=== PATIENT | female | born 1950 | race Hispanic/Latino ===

== ENCOUNTER → 2019-01-17 | Day surgery (SDC) | payer MEDICARE ==
[2019-01-15 14:09] LABS: BASOPHILS % 0.4 % (0.0-1.0); EOSINOPHILS # (AUTO) 0.2 (0.0-0.4); EOSINOPHILS % 2.9 % (0.0-6.0); HEMATOCRIT 39.4 % (34.2-44.1); HEMOGLOBIN 13.7 g/dL (12.0-16.0); LYMPHOCYTES % 28.3 % (18.0-39.1); MEAN CORPUSCULAR HEMOGLOBIN 31.4 pg (28-32); MEAN CORPUSCULAR HGB CONC 34.8 g/dL (31-35); MEAN CORPUSCULAR VOLUME 90.2 fL (81-99); MONOCYTES # (AUTO) 0.6 (0.2-0.8); MONOCYTES % 8.7 % (4.4-11.3); NEUTROPHILS # (AUTO) 4.2 (2.1-6.9); NEUTROPHILS % 59.4 % (38.7-80.0); PLATELET COUNT 242 x10e3/uL (140-360); RED BLOOD COUNT 4.37 x10e6/uL (3.6-5.1); RED CELL DISTRIBUTION WIDTH 12.3 % (11.7-14.4)
[2019-01-15 14:26] LABS: INR 0.85; PROTHROMBIN TIME 12.1 seconds (11.9-14.5)
[2019-01-15 14:27] LABS: PARTIAL THROMBOPLASTIN TIME 29.7 seconds (23.8-35.5)
--- NOTE | 2019-01-15 15:21 | Diagnostic Imaging Report ---
EXAMINATION: CHEST 2 VIEWS INDICATION: Pre-operative COMPARISON: Chest radiograph of 03/10/2009 FINDINGS: LINES/TUBES:None LUNGS:The lungs are well-inflated. No focal consolidation or pulmonary edema. PLEURA:No pleural effusion or pneumothorax. MEDIASTINUM:The cardiomediastinal silhouette appears normal in size and shape. BONES/SOFT TISSUES:No acute osseous injury. Mild degenerative changes of the visualized spine. Cervical fusion hardware partially visualized. ABDOMEN:No free air under the diaphragm. IMPRESSION: No focal pneumonia or pulmonary edema. Signed by: Yvonne Payne MD on 01/15/2019 3:18 PM
[~2019-01-17] MED LIST: BUPIVACAINE HCL 0.5% INJ 30 ML VIAL INJ ONE; CALCIUM PO; CEFAZOLIN SOD 1 GM/NS 50ML 100 ML IV ONE; CITALOPRAM HBR20 MG PO; DAILY VITAMIN1 EAC3 PO; DEXAMETHASONE SOD PHOS INJ 4 MG/ML VIAL ONE; FENTANYL CITRATE/PF 100MCG/2 ML INJ ONE; KETOROLAC TROMETHAMINE 30 MG/ML VIAL ONE; LIDOCAINE HCL 2% LOCAL INJ 5 ML SDV VIAL INJ ONE; LOSARTAN POTASS25 MG PO; LOVASTATIN10 MG PO; MULTIVITAMINS1 EAC7 PO; ONDANSETRON HCL INJ 2MG/ML 2ML 2 MG/ML VIAL ONE; PROPOFOL IV EMULSION 10 MG/ML 20 ML VIAL ONE; SEVOFLURANE INHAL SOLN 250 ML PEN BTL ONE; VITAMIN B; VITAMIN D1000 UNI1 PO; VITAMIN D400 UNIT PO; Z.0.ZOLOFT50 MG PO; Z.2.CALCIUM 600 +1 E
--- OUTSIDE RECORDS SUMMARY | 2019-01-17 06:37 | XMS REPORT | Summary of Care ---
Author Organization Unknown Address Unknown Phone Unavailable Encounter HQ [email or web address](JUDY) [id number] Date(s): 02/04/14 - 02/04/14 [facility] Outpatient Imaging - [address] [address]- [place] Discharge Disposition: Home Physician Attending: Suleiman Hassan MD Reason for Visit 592.0 - CALCULUS OF KID 593.2 - "CYST OF KIDNEY," Problem List No data available for this section Allergies, Adverse Reactions, Alerts Substance Reaction Severity Status NKDA Active Medications No data available for this section Medications Administered During Your Visit No data available for this section Immunizations No data available for this section
--- OUTSIDE RECORDS SUMMARY | 2019-01-17 06:37 | XMS REPORT | Summary of Care ---
Author Organization Unknown Address Unknown Phone Unavailable Encounter HQ [email or web address]([facility]) [id number] Date(s): 12/19/13 - 12/19/13 [facility] Outpatient Imaging - [address] [address]- [place] Discharge Disposition: Home Physician Attending: Branden Maldonado MD Reason for Visit 719.47 - JOINT PAIN-ANKL Problem List No data available for this section Allergies, Adverse Reactions, Alerts Substance Reaction Severity Status NKDA Active Medications No data available for this section Medications Administered During Your Visit No data available for this section Immunizations No data available for this section
--- OUTSIDE RECORDS SUMMARY | 2019-01-17 06:37 | XMS REPORT | Summary of Care ---
Author Author [facility] Outpatient Imaging - [place] Organization [facility] Outpatient Imaging - [place] Address Unknown Phone Unavailable Encounter HQ Benoit(FIN) [id number] Date(s): 07/28/17 - 07/28/17 [facility] Outpatient Imaging - [place] [address] [place] [address]- [phone] Encounter Diagnosis Calculus of kidney (Final) - 08/01/17 Cyst of kidney, acquired (Final) - Discharge Disposition: Home or Self Care Attending Physician: Suleiman Hassan MD Vital Signs No data available for this section Problem List Condition Effective Dates Status Health Status Informant Acid Active reflux(Confirmed) Anxiety(Confirmed) Resolved HTN - Resolved Hypertension(Confirm ed) Kidney Active stone(Confirmed) Sleep Active apnea(Confirmed) Allergies, Adverse Reactions, Alerts Substance Reaction Severity Status NKDA Active Medications No data available for this section Results No data available for this section Immunizations No data available for this section Procedures Procedure Date Related Diagnosis Body Site Status Cervical discectomy Completed Cholecystectomy Completed Eddi-Thelma operation for hiatal hernia Completed repair with esophagogastroplasty Hernia repair Completed Partial hysterectomy Completed Social History Social History Type Response Employment/School Status: Retired. Alcohol Never Smoking Status Former smoker; Exposure to Tobacco Smoke None; Cigarette Smoking Last 365 Days No; Reg Smoking Cessation Counseling No entered on: 04/24/17 Assessment and Plan No data available for this section
--- OUTSIDE RECORDS SUMMARY | 2019-01-17 06:37 | XMS REPORT | Summary of Care ---
Author Author [facility] Address Unknown Phone Unavailable Encounter HQ Benoit(JUDY) [id number] Date(s): 05/31/17 - 06/29/17 [facility] Encounter Diagnosis Encounter for other orthopedic aftercare (Final) - 07/04/17 Stiffness of right knee, not elsewhere classified (Final) - Pain in right knee (Final) - Muscle weakness (generalized) (Final) - Unsteadiness on feet (Final) - Unspecified abnormalities of gait and mobility (Final) - Presence of right artificial knee joint (Final) - Discharge Disposition: Home or Self Care Attending Physician: Magdi Torres MD Vital Signs No data available for [...]
--- OUTSIDE RECORDS SUMMARY | 2019-01-17 06:37 | XMS REPORT | Summary of Care ---
Author Author [facility] Address Unknown Phone Unavailable Encounter HQ Rosalinda_bartolome(FIN) [id number] Date(s): 04/26/17 - 05/25/17 [facility] Discharge Disposition: Home or Self Care Attending [...] Procedures Procedure Date Related Diagnosis Body Site Cervical discectomy Cholecystectomy Eddi-Thelma operation for hiatal hernia repair with esophagogastroplasty Hernia repair Partial hysterectomy Social History Social History Type Response Employment/School Status: Retired. Alcohol Never Smoking Status Former smoker; Exposure to Tobacco Smoke None; Cigarette Smoking Last 365 Days No; Reg Smoking Cessation Counseling No Assessment and Plan No data available for this section
--- OUTSIDE RECORDS SUMMARY | 2019-01-17 06:37 | XMS REPORT | Summary of Care ---
Author Organization Unknown Address Unknown Phone Unavailable Encounter HQ [email or web address]([facility]) [id number] Date(s): 01/27/14 - 01/27/14 [facility] Outpatient Imaging - [address] [address]- [place] Discharge Disposition: Home Physician Attending: Suleiman Hassan MD Reason for Visit 593.2 - "CYST OF KIDNEY," Problem List No data available for this section Allergies, Adverse Reactions, Alerts Substance Reaction Severity Status NKDA Active Medications No data available for this section Medications Administered During Your Visit No data available for this section Immunizations No data available for this section
--- OUTSIDE RECORDS SUMMARY | 2019-01-17 06:37 | XMS REPORT | Summary of Care ---
Author Author [facility] Organization [facility] Address Unknown Phone Unavailable Encounter HQ Benoit(FIN) [id number] Date(s): 07/19/18 - 07/20/18 [facility] [address] [place] [address]- [phone] Encounter Diagnosis Kidney stone on right side (Discharge Diagnosis) - 07/20/18 Discharge Disposition: Home or Self Care Attending Physician: Feli Hassan DO Vital Signs 1 2 3 Most recent to oldest [Reference Range]: 167.64 cm (07/19/18 11:06 PM) Height 97.7 DegF (07/20/18 4:25 AM) 98.0 DegF (07/19/18 11:06 PM) Temperature Oral [96.4-99.1 DegF] 117/71 mmHg (07/20/18 4:25 AM) 132/76 mmHg (07/20/18 3:36 AM) 124/71 mmHg (07/20/18 2:45 AM) Blood Pressure [90-140/60-90 mmHg] 18 BRMIN (07/20/18 4:25 AM) 23 BRMIN *HI* (07/20/18 3:36 AM) 20 BRMIN (07/20/18 2:45 AM) Respiratory Rate [14-20 BRMIN] 77 bpm (07/20/18 4:25 AM) 76 bpm (07/19/18 11:06 PM) Peripheral Pulse Rate [60-100 bpm] 77.273 kg (07/19/18 11:06 PM) Weight 27.5 m2 (07/19/18 11:06 PM) Body Mass Index Problem List Condition Effective Dates Status Health Status Informant Acid Active reflux(Confirmed) Anxiety(Confirmed) Resolved HTN - Resolved Hypertension(Confirm ed) Kidney Active stone(Confirmed) Sleep Active apnea(Confirmed) Allergies, Adverse Reactions, Alerts Substance Reaction Severity Status NKDA Active Medications Carafate 1 gm, 1 tab, Route: PO, Drug form: TAB, QID-Before Meals, Dosing Weight 77.273, kg, Start date: 07/20/18 7:30:00 FURNACE ROASTER, Duration: 30 day, Stop date: 08/18/18 21:0 0:00 FURNACE ROASTER Notes: May interfere w/enteral feeds - Take 1 hr before or 2 hr after antacids, dairy pdt, meals & minerals - On empty stomach.For patients unable to swallow tablet, dissolve in 10mL - 30mL of water or juice and stir before giving. (Same As: Carafate) Start Date: 07/20/18 Stop Date: 07/20/18 Status: Canceled Flomax 0.4 mg oral capsule 0.4 mg=1 cap, PO, Daily, # 30 cap, 0 Refill(s) Start Date: 07/20/18 Status: Ordered morphine Sulfate 4 mg, Route: IVP, ONCE, Dosing Weight 77.273, kg, Priority: STAT, Start date: 1:10:00 FURNACE ROASTER, Stop date: 07/20/18 1:10:00 FURNACE ROASTER Start Date: 07/20/18 Stop Date: 07/20/18 Status: Completed ondansetron 4 mg, Route: IVP, Drug form: INJ, ONCE, Dosing Weight 77.273, kg, Priority: STAT , Start date: 07/20/18 1:10:00 FURNACE ROASTER, Stop date: 07/20/18 1:10:00 FURNACE ROASTER Start Date: 07/20/18 Stop Date: 07/20/18 Status: Completed Sodium Chloride 0.9% (Bolus) IV 1,000 mL, Infuse Over: 1 hr, Route: IV, ONCE, Priority: STAT, Dosing Weight 77.2 73 kg, Start date: 07/20/18 1:10:00 FURNACE ROASTER, Stop date: 07/20/18 1:10:00 FURNACE ROASTER Start Date: 07/20/18 Stop Date: 07/20/18 Status: Completed Results ELECTROLYTES Most recent to 1 oldest [Reference Range]: Sodium Lvl [135-145 135 mEq/L mEq/L] (07/20/18 12:36 AM) Potassium Lvl 4.2 mEq/L [3.5-5.1 mEq/L] (07/20/18 12:36 AM) Chloride Lvl [95-109 105 mEq/L mEq/L] (07/20/18 12:36 AM) CO2 [24-32 mEq/L] 25 mEq/L (07/20/18 12:36 AM) AGAP [10.0-20.0 9.2 mEq/L mEq/L] *LOW* (07/20/18 12:36 AM) CHEM PANEL Most recent to 1 oldest [Reference Range]: Creatinine Lvl 0.78 mg/dL [0.50-1.40 mg/dL] (07/20/18 12:36 AM) eGFR 77 mL/min/1.73m2 1 *NA* (07/20/18 12:36 AM) BUN [7-22 mg/dL] 21 mg/dL (07/20/18 12:36 AM) B/C Ratio [6-25] 27 *HI* (07/20/18 12:36 AM) Glucose Lvl [70-99 115 mg/dL mg/dL] *HI* (07/20/18 12:36 AM) Total Protein 7.4 g/dL [6.4-8.4 g/dL] (07/20/18 12:36 AM) Albumin Lvl [3.5-5.0 3.5 g/dL g/dL] (07/20/18 12:36 AM) Globulin [2.7-4.2 3.9 g/dL g/dL] (07/20/18 12:36 AM) A/G Ratio [0.7-1.6] 0.9 (07/20/18 12:36 AM) Calcium Lvl 8.6 mg/dL [8.5-10.5 mg/dL] (07/20/18 12:36 AM) ALT [0-65 unit/L] 26 unit/L (07/20/18 12:36 AM) AST [0-37 unit/L] 24 unit/L (07/20/18 12:36 AM) Alk Phos [39-136 127 unit/L unit/L] (07/20/18 12:36 AM) Bili Total [0.2-1.3 0.3 mg/dL mg/dL] (07/20/18 12:36 AM) 1Result Comment: The eGFR is calculated using the CKD-EPI formula. In most young, healthy individuals the eGFR will be >90 mL/min/1.73m2. The eGFR declines with age. An eGFR of 60-89 may be normal in some populations, particularly the elderly, for whom the CKD-EPI formula has not been extensively validated. Use of the eGFR is not recommended in the following populations: Individuals with unstable creatinine concentrations, including patients and those with serious co-morbid conditions. Patients with extremes in muscle mass or diet. The data above are obtained from the National Kidney Disease Education Program ( NKDEP) which additionally recommends that when the eGFR is used in patients with extremes of body mass index for purposes of drug dosing, the eGFR should be mul tiplied by the estimated BMI. URINE AND STOOL Most recent to 1 oldest [Reference Range]: UA Turbidity [Clear] Clear (07/19/18 11:23 PM) UA Color Sheela *NA* (07/19/18 11:23 PM) UA pH [5.0-8.0] 5.0 (07/19/18 11:23 PM) UA Spec Grav 1.019 [<=1.030] (07/19/18 11:23 PM) UA Glucose Negative [Negative] *NA* (07/19/18 11:23 PM) UA Blood [Negative] Large *ABN* (07/19/18 11:23 PM) UA Ketones Negative [Negative] *NA* (07/19/18 11:23 PM) UA Protein [Negative 30 mg/dL mg/dL] *ABN* (07/19/18 11:23 PM) UA Urobilinogen 4.0 mg/dL [0.1-1.0 mg/dL] *HI* (07/19/18 11:23 PM) UA Bili [Negative] Negative *NA* (07/19/18 11:23 PM) UA Leuk Est Negative [Negative] (07/19/18 11:23 PM) UA Nitrite Positive [Negative] *ABN* (07/19/18 11:23 PM) UA WBC [0-5 /HPF] 6 /HPF *HI* (07/19/18 11:23 PM) UA RBC [0-2 /HPF] >182 /HPF *HI* (07/19/18 11:23 PM) UA Bacteria [None Occasional /HPF Seen /HPF] *NA* (07/19/18 11:23 PM) UA Sq Epi [Few /LPF] Occasional /LPF *NA* (07/19/18 11:23 PM) HEMATOLOGY Most recent to 1 oldest [Reference Range]: WBC [3.7-10.4 K/CMM] 10.0 K/CMM (07/20/18 12:36 AM) RBC [4.20-5.40 4.58 M/CMM M/CMM] (07/20/18 12:36 AM) Hgb [12.0-16.0 g/dL] 14.8 g/dL (07/20/18 12:36 AM) Hct [36.0-48.0 %] 43.4 % (07/20/18 12:36 AM) MCV [80.0-98.0 fL] 94.7 fL (07/20/18 12:36 AM) MCH [27.0-31.0 pg] 32.3 pg *HI* (07/20/18 12:36 AM) MCHC [32.0-36.0 34.1 g/dL g/dL] (07/20/18 12:36 AM) RDW [11.5-14.5 %] 13.8 % (07/20/18 12:36 AM) MPV [7.4-10.4 fL] 8.5 fL (07/20/18 12:36 AM) Platelet [133-450 242 K/CMM K/CMM] (07/20/18 12:36 AM) Segs [45.0-75.0 %] 73.4 % (07/20/18 12:36 AM) Lymphocytes 18.5 % [20.0-40.0 %] *LOW* (07/20/18 12:36 AM) Monocytes [2.0-12.0 6.7 % %] (07/20/18 12:36 AM) Eosinophils [0.0-4.0 1.0 % %] (07/20/18 12:36 AM) Basophils [0.0-1.0 0.4 % %] (07/20/18 12:36 AM) Neutrophils # 7.4 K/CMM [1.5-8.1 K/CMM] (07/20/18 12:36 AM) Lymphocytes # 1.9 K/CMM [1.0-5.5 K/CMM] (07/20/18 12:36 AM) Monocytes # [0.0-0.8 0.7 K/CMM K/CMM] (07/20/18 12:36 AM) Eosinophils # 0.1 K/CMM [0.0-0.5 K/CMM] (07/20/18 12:36 AM) Immunizations No data available for this section [...] Reg Smoking Cessation Counseling No entered on: 07/20/18 Assessment and Plan No data available for this section
--- OUTSIDE RECORDS SUMMARY | 2019-01-17 06:37 | XMS REPORT | Summary of Care ---
Author Organization Unknown Address Unknown Phone Unavailable Encounter [facility](JUDY) [id number] Date(s): 02/28/14 - 02/28/14 [facility] [id number] [address] Discharge Disposition: Home Physician Attending: Suleiman Hassan MD Physician_Referring: Suleiman Hassan MD Reason for Visit 592.0 Vital Signs 1 2 3 Most recent to oldest [Reference Range]: 162.56 cm (02/21/14 10:33 AM) Height 98.3 DegF (02/21/14 10:51 AM) Temperature Oral [96.4-99.1 DegF] 90 mmHg (02/28/14 11:15 AM) 105 mmHg (02/28/14 10:30 AM) 105 mmHg (02/28/14 10:00 AM) Systolic Blood Pressure [90-140 mmHg] 59 mmHg *LOW* (02/28/14 11:15 AM) 70 mmHg (02/28/14 10:30 AM) 72 mmHg (02/28/14 10:00 AM) Diastolic Blood Pressure [60-90 mmHg] 20 BRMIN (02/28/14 10:30 AM) 14 BRMIN (02/28/14 10:15 AM) 15 BRMIN (02/28/14 10:00 AM) Respiratory Rate [14-20 BRMIN] 68 bpm (02/28/14 6:54 AM) 55 bpm *LOW* (02/21/14 10:51 AM) Peripheral Pulse Rate [60-100 bpm] 69.545 kg (02/21/14 10:33 AM) Weight 26.32 m2 (02/21/14 10:33 AM) Body Mass Index Problem List Condition Effective Dates Status Health Status Informant Acid Active reflux(Confirmed) HTN - Active Hypertension(Confirm ed) Kidney Active stone(Confirmed) Sleep Active apnea(Confirmed) Allergies, Adverse Reactions, Alerts Substance Reaction Severity Status NKDA Active Medications acetaminophen-hydrocodone 325 mg-5 mg oral tablet 1 tab, Route: PO, Drug Form: TAB, Dosing Weight 69.545, kg, Q4H, PRN Pain Score 4-6, Start date: 02/28/14 9:19:00, Duration: 30 day, Stop date: 03/30/14 9:18:00 Notes: (Same as: [place] 325/5) Do not exceed 4gm/day of acetaminophen. Start Date: 02/28/14 Stop Date: 02/28/14 Status: Discontinued Ancef + Sodium Chloride 0.9% IV 100 mL 1 gm, Route: IVPB, ONCE, Dosing Weight 69.545, kg, Start date: 02/28/14 7:06:00, Stop date: 02/28/14 7:06:00 Notes: (Same As: Ancef, Kefzol) Start Date: 02/28/14 Stop Date: 02/28/14 Status: Ordered Bactrim DS oral tablet 1 tab, PO, BID, # 14 tab, 0 Refill(s) Start Date: 02/28/14 Stop Date: 03/07/14 Status: Ordered calcium carbonate 1,200 mg, PO, Daily, 0 Refill(s) Start Date: 02/21/14 Status: Ordered Cipro 500 mg oral tablet 500 mg=1 tab, PO, Q12H, # 14 tab, 0 Refill(s) Start Date: 02/28/14 Stop Date: 03/07/14 Status: Ordered diphenhydrAMINE 12.5 mg, Route: IVP, Drug form: INJ, Q6H, Dosing Weight 69.545, kg, PRN Itching, Start date: 02/28/14 9:44:00, Duration: 30 day, Stop date: 03/30/14 9:43:00 Start Date: 02/28/14 Stop Date: 02/28/14 Status: Discontinued fentaNYL 25 microgram, Route: IVP, Q5Min, Dosing Weight 69.545, kg, PRN Pain Score 4-6, S tart date: 02/28/14 9:44:00, Duration: 4 doses or times, Stop date: Limited # of times Start Date: 02/28/14 Stop Date: 02/28/14 Status: Discontinued fentaNYL 50 microgram, Route: IVP, Q5Min, Dosing Weight 69.545, kg, PRN Pain Score 7-10, Start date: 02/28/14 9:44:00, Duration: 2 doses or times, Stop date: Limited # o f times Start Date: 02/28/14 Stop Date: 02/28/14 Status: Discontinued flumazenil 0.2 mg, Route: IVP, PRN, Dosing Weight 69.545, kg, PRN Benzodiazepine Reversal, Initial dose, Start date: 02/28/14 9:44:00, Duration: 30 day, Stop date: 4 9:43:00 Start Date: 02/28/14 Stop Date: 02/28/14 Status: Discontinued gentamicin 120 mg, 100 mL, Route: IVPB, Drug form: INJ, ONCE, Dosing Weight 69.545, kg, Sta rt date: 02/28/14 7:06:00, Stop date: 02/28/14 7:06:00 Notes: (Same as Garamycin) Start Date: 02/28/14 Stop Date: 02/28/14 Status: Ordered glycopyrrolate 0.2 mg, Route: IVP, Q5Min, Dosing Weight 69.545, kg, PRN Bradycardia, Start date : 02/28/14 9:44:00, Duration: 3 doses or times, Stop date: Limited # of times Start Date: 02/28/14 Stop Date: 02/28/14 Status: Discontinued hydrALAZINE 10 mg, Route: IVP, Q20Min, Dosing Weight 69.545, kg, PRN Elevated BP, Start date : 02/28/14 9:44:00, Duration: 2 doses or times, Stop date: Limited # of times Start Date: 02/28/14 Stop Date: 02/28/14 Status: Discontinued hydromorphone 0.5 mg, Route: IVP, Q5Min, Dosing Weight 69.545, kg, PRN Pain Score 7-10, Start date: 02/28/14 9:44:00, Duration: 4 doses or times, Stop date: Limited # of time s Start Date: 02/28/14 Stop Date: 02/28/14 Status: Discontinued hydromorphone 0.3 mg, 0.3 mL, Route: IVP, Drug form: INJ, Q3H, Dosing Weight 69.545, kg, PRN P ain Score 4-6, Start date: 02/28/14 9:19:00, Duration: 30 day, Stop date: 9:18:00 Start Date: 02/28/14 Stop Date: 02/28/14 Status: Discontinued ketorolac 30 mg, Route: IVP, ONCE, Dosing Weight 69.545, kg, Start date: 02/28/14 9:44:00, Duration: 1 doses or times, Stop date: 02/28/14 9:44:00 Start Date: 02/28/14 Stop Date: 02/28/14 Status: Completed Lactated Ringers Injection IV 1000 mL 1,000 mL, Rate: 25 ml/hr, Infuse over: 40 hr, Route: IV, Dosing Weight 69.545 kg , Total Volume: 1,000, Start date: 02/28/14 7:05:00, Duration: 30 day, Stop date : 03/30/14 7:04:00 Start Date: 02/28/14 Stop Date: 02/28/14 Status: Discontinued losartan 25 mg oral tablet 25 mg=1 tab, PO, Daily, # 30 tab, 0 Refill(s) Start Date: 02/21/14 Status: Ordered meperidine 12.5 mg, Route: IVP, Q30Min, Dosing Weight 69.545, kg, PRN Other -See Comment, F or shivering, Start date: 02/28/14 9:44:00, Duration: 2 doses or times, Stop esau e: Limited # of times Start Date: 02/28/14 Stop Date: 02/28/14 Status: Discontinued metoprolol 1 mg, Route: IVP, Q5Min, Dosing Weight 69.545, kg, PRN Other -See Comment, Start date: 02/28/14 9:44:00, Duration: 5 doses or times, Stop date: Limited # of paris es Start Date: 02/28/14 Stop Date: 02/28/14 Status: Discontinued morphine Sulfate 4 mg, Route: IVP, Q5Min, Dosing Weight 69.545, kg, PRN Pain Score 7-10, Start da te: 02/28/14 9:44:00, Duration: 3 doses or times, Stop date: Limited # of times Start Date: 02/28/14 Stop Date: 02/28/14 Status: Discontinued morphine Sulfate 2 mg, Route: IVP, Q5Min, Dosing Weight 69.545, kg, PRN Pain Score 4-6, Start esau e: 02/28/14 9:44:00, Duration: 5 doses or times, Stop date: Limited # of times Start Date: 02/28/14 Stop Date: 02/28/14 Status: Discontinued Multiple Vitamins oral tablet 1 tab, PO, Daily, # 30 tab, 0 Refill(s) Start Date: 02/21/14 Status: Ordered naloxone 0.04 mg, Route: IVP, Q2MIN, Dosing Weight 69.545, kg, PRN Narcotic Reversal, Sta rt date: 02/28/14 9:44:00, Duration: 8 doses or times, Stop date: Limited # of t imes Start Date: 02/28/14 Stop Date: 02/28/14 Status: Discontinued ondansetron 4 mg, Route: IVP, ONCE, Dosing Weight 69.545, kg, PRN Nausea & Vomiting, Start date: 02/28/14 9:44:00 Start Date: 02/28/14 Stop Date: 02/28/14 Status: Discontinued oxyCODONE 5 mg, Route: PO, Drug form: TAB, Q4H, Dosing Weight 69.545, kg, PRN Pain Score 4 -6, Start date: 02/28/14 9:44:00, Duration: 30 day, Stop date: 03/30/14 9:43:00 Start Date: 02/28/14 Stop Date: 02/28/14 Status: Discontinued oxyCODONE 10 mg, Route: PO, Drug form: TAB, Q4H, Dosing Weight 69.545, kg, PRN Pain Score 7-10, Start date: 02/28/14 9:44:00, Duration: 30 day, Stop date: 03/30/14 9:43:0 0 Start Date: 02/28/14 Stop Date: 02/28/14 Status: Discontinued promethazine 6.25 mg, Route: IVPB, ONCE, Dosing Weight 69.545, kg, PRN Nausea & Vomiting, Start date: 02/28/14 9:44:00 Start Date: 02/28/14 Stop Date: 02/28/14 Status: Discontinued Zoloft 100 mg oral tablet 100 mg=1 tab, PO, Daily, # 30 tab, 0 Refill(s) Start Date: 02/21/14 Status: Ordered Results ELECTROLYTES Most recent to 1 oldest [Reference Range]: Sodium Lvl [135-145 138 mEq/L mEq/L] (02/21/14 11:05 AM) Potassium Lvl 3.8 mEq/L [3.5-5.1 mEq/L] (02/21/14 11:05 AM) Chloride Lvl [95-109 104 mEq/L mEq/L] (02/21/14 11:05 AM) CO2 [24-32 mEq/L] 28 mEq/L (02/21/14 11:05 AM) AGAP [10.0-20.0 9.8 mEq/L mEq/L] *LOW* (02/21/14 11:05 AM) CHEM PANEL Most recent to 1 oldest [Reference Range]: Creatinine Lvl 0.5 mg/dL [0.5-1.4 mg/dL] (02/21/14 11:05 AM) eGFR 102 mL/min/1.73m2 1 *NA* (02/21/14 11:05 AM) BUN [7-22 mg/dL] 10 mg/dL (02/21/14 11:05 AM) Glucose Lvl [70-99 81 mg/dL 2 mg/dL] (02/21/14 11:05 AM) Calcium Lvl 9.4 mg/dL [8.5-10.5 mg/dL] (02/21/14 11:05 AM) 1Result Comment: The eGFR is calculated [...] be mul tiplied by the estimated BMI. 2Interpretive Data: Adult reference range values reflect the clinical guidelines of the [employer]. URINE AND STOOL Most recent to 1 oldest [Reference Range]: UA Turbidity [Clear] Clear (02/21/14 11:05 AM) UA Color Ltyellow *NA* (02/21/14 11:05 AM) UA pH [5.0-8.0] 7.0 (02/21/14 11:05 AM) UA Spec Grav 1.009 [<=1.030] (02/21/14 11:05 AM) UA Glucose [Negative Negative mg/dL mg/dL] *NA* (02/21/14 11:05 AM) UA Blood [Negative] Negative (02/21/14 11:05 AM) UA Ketones [Negative Negative mg/dL mg/dL] *NA* (02/21/14 11:05 AM) UA Protein [Negative Negative mg/dL mg/dL] (02/21/14 11:05 AM) UA Urobilinogen <=1.0 mg/dL [0.1-1.0 mg/dL] *NA* (02/21/14 11:05 AM) UA Bili [Negative] Negative *NA* (02/21/14 11:05 AM) UA Leuk Est Trace [Negative] *ABN* (02/21/14 11:05 AM) UA Nitrite Negative [Negative] (02/21/14 11:05 AM) UA WBC [0-5 /HPF] 1 /HPF (02/21/14 11:05 AM) UA RBC [0-2 /HPF] 1 /HPF (02/21/14 11:05 AM) UA Sq Epi [Few /LPF] Occasional /LPF *NA* (02/21/14 11:05 AM) HEMATOLOGY Most recent to 1 oldest [Reference Range]: WBC [3.7-10.4 K/CMM] 6.9 K/CMM (02/21/14 11:05 AM) RBC [4.20-5.40 4.43 M/CMM M/CMM] (02/21/14 11:05 AM) Hgb [12.0-16.0 g/dL] 14.1 g/dL (02/21/14 11:05 AM) Hct [36.0-48.0 %] 40.9 % (02/21/14 11:05 AM) MCV [80.0-98.0 fL] 92.5 fL (02/21/14 11:05 AM) MCH [27.0-31.0 pg] 31.9 pg *HI* (02/21/14:05 AM) MCHC [32.0-36.0 34.5 g/dL g/dL] (02/21/14 11:05 AM) RDW [11.5-14.5 %] 12.6 % (02/21/14 11:05 AM) Platelet [133-450 254 K/CMM K/CMM] (02/21/14 11:05 AM) MPV [7.4-10.4 fL] 8.7 fL (02/21/14 11:05 AM) Segs [45.0-75.0 %] 59.6 % (02/21/14 11:05 AM) Lymphocytes 29.8 % [20.0-40.0 %] (02/21/14 11:05 AM) Monocytes [2.0-12.0 7.5 % %] (02/21/14 11:05 AM) Eosinophils [0.0-4.0 2.4 % %] (02/21/14 11:05 AM) Basophils [0.0-1.0 0.7 % %] (02/21/14 11:05 AM) Segs-Bands # 4.1 K/CMM [1.5-8.1 K/CMM] (02/21/14 11:05 AM) Lymphocytes # 2.0 K/CMM [1.0-5.5 K/CMM] (02/21/14 11:05 AM) Monocytes # [0.0-0.8 0.5 K/CMM K/CMM] (02/21/14 11:05 AM) Eosinophils # 0.2 K/CMM [0.0-0.5 K/CMM] (02/21/14 11:05 AM) PT [12.0-14.7 12.2 seconds seconds] (02/21/14 11:05 AM) INR [0.85-1.17] 0.91 3 (02/21/14 11:05 AM) PTT [22.9-35.8 27.1 seconds 4 seconds] (02/21/14 11:05 AM) 3Interpretive Data: RECOMMENDED RANGES FOR PROTIME INR: 2.0-3.0 for most medical and surgical thromboembolic states. 2.5-3.5 for artificial heart valves and recurrent embolism. INR SHOULD BE USED ONLY FOR PATIENTS ON STABLE ANTICOAGULANT THERAPY. 4Interpretive Data: Heparin Therapeutic Range: 57 - 92 Seconds Medications Administered During Your Visit No data available for this section Immunizations No data available for this section Procedures Procedure Type Body Site Date of Procedure Related Diagnosis Eddi-Thelma operation for hiatal hernia repair with esophagogastroplasty Partial hysterectomy Social History Social History Type Response Smoking Status Former smoker, Exposure to Tobacco Smoke None, Cigarette Smoking Last 365 Days No, Reg Smoking Cessation Counseling No
--- OUTSIDE RECORDS SUMMARY | 2019-01-17 06:37 | XMS REPORT | Continuity of Care Document ---
Author Author [employer] Address Unknown Phone Unavailable Care Team Providers Care Upper Marker Name Role Phone [employer] Information [facility] Unavailable Unavailable Problems Problem Status Onset Date Classification Date Reported Comments Source XRAY Active 07/26/2018 [facility] Kidney stone on right side 07/20/2018 07/23/2018 [facility] FLANK PAIN Active 07/19/2018 [facility] Calculus of kidney 08/02/2017 11/03/2017 [facility] [place] Encounter for other orthopedic aftercare 07/05/2017 10/05/2017 [facility] [place] RIGHT TKA Active 04/25/2017 [facility] [place] RT TKA Active 04/25/2017 [facility] [place] UNK Active 03/29/2017 [facility] M17.11 Active 03/29/2017 [facility] Simple renal cyst Resolved 04/13/2015 Problem 07/29/2018 [facility] 729.5 - PAIN IN LIMB Active 03/09/2015 [facility] [place] 592.0 Active 02/05/2014 [facility] 719.47 - JOINT PAIN-ANKL Active 12/19/2013 [facility] [place] Acid reflux Active Problem 07/29/2018 [facility] [place],[facility] [place] HTN - Hypertension Resolved Problem 07/29/2018 [facility] [place],[facility] [place] Kidney stone Active Problem 07/29/2018 [facility] [place],[facility] [place] Sleep apnea Active Problem 07/29/2018 [facility] [place],[facility] [place] Stiffness of right knee, not elsewhere classified 10/05/2017 [facility] [place] Pain in right knee 10/05/2017 [facility] [place] Muscle weakness 10/05/2017 [facility] [place] Unsteadiness on feet 10/05/2017 [facility] [place] Unspecified abnormalities of gait and mobility 10/05/2017 [facility] [place] Presence of right artificial knee joint 10/05/2017 [facility] [place] Cyst of kidney, acquired 11/03/2017 [facility] [place] Final: Unilateral primary osteoarthritis, right knee 04/28/2017 [facility] Anxiety Resolved Problem 07/29/2018 [facility] [place],[facility] [place] UNILATERAL PRIMARY OSTEOARTHRITIS, RIGHT Active [facility] Medications Medication Details Route Status Patient Instructions Ordering Provider Order Date Source Sucralfate 100 MG/ML Oral Suspension [Carafate] 1 gm, 1 tab, Route: PO, Drug form: TAB, QID-Before Meals, Dosing Weight 77.273, kg, Start date: 07/20/18 7:30:00 RECORDER OF DEEDS, Duration: 30 day, Stop date: 08/18/18 21:00:00 CSTNotes: May interfere w/enteral feeds - Take 1 hr before or 2 hr after antacids, dairy pdt, meals & minerals - On empty stomach. For patients unable to swallow tablet, dissolve in 10mL - 30mL of water or juice and stir before giving. (Same As: Carafate) Inactive 07/20/2018 [facility] Tamsulosin hydrochloride 0.4 MG Oral Capsule [Flomax] 0.4 mg=1 cap, PO, Daily, # 30 cap, 0 Refill(s) Active 07/20/2018 [facility] Sodium Chloride 0.9% (Bolus) IV 1,000 mL, Infuse Over: 1 hr, Route: IV, ONCE, Priority: STAT, Dosing Weight 77.273 kg, Start date: 07/20/18 1:10:00 RECORDER OF DEEDS, Stop date: 07/20/18 1:10:00 [facility]EDS Inactive 07/20/2018 [facility] Morphine 4 mg, Route: IVP, ONCE, Dosing Weight 77.273, kg, Priority: STAT, Start date: 07/20/18 1:10:00 RECORDER OF DEEDS, Stop date: 07/20/18 1:10:00 [facility]ORDER [facility]EDS Inactive 07/20/2018 [facility] Ondansetron 4 mg, Route: IVP, Drug form: INJ, ONCE, Dosing Weight 77.273, kg, Priority: STAT, Start date: 07/20/18 1:10:00 RECORDER OF DEEDS, Stop date: 07/20/18 1:10:00 RECORDER OF DEEDS Inactive 07/20/2018 [facility] dexamethasone 2 mg, 0.5 tab, Route: PO, Drug form: TAB, ONCE, Start date: 04/27/17 12:00:00 RECORDER OF DEEDS, Stop date: 04/27/17 12:00:00 CSTNotes: Give with food. (Same As: Decadron) No Longer Active 04/27/2017 [facility] dexamethasone 4 mg, 1 tab, Route: PO, Drug form: TAB, ONCE, Start date: 04/26/17 12:00:00 RECORDER OF DEEDS, Stop date: 04/26/17 12:00:00 CSTNotes: Give with food. (Same As: Decadron) No Longer Active 04/26/2017 [facility] Saline Flush 0.9% 10 ml, Route: IVP, Drug Form: INJ, Dosing Weight 70.057, kg, Q12H, Start date: 04/25/17 21:00:00 RECORDER OF DEEDS, Duration: 30 day, Stop date: 05/25/17 9:00:00 CSTNotes: (Same as: BD Posiflush) Inactive 04/26/2017 [facility] Zofran 4 mg, 2 mL, Route: IVP, Drug form: INJ, Q6H, PRN Nausea & Vomiting, Start date: 04/25/17 14:00:00 RECORDER OF DEEDS, Duration: 30 day, Stop date: 05/25/17 13:59:00 CSTNotes: (Same as: Zofran) MEDICATION WASTE Product Size: 4 mg Product Wasted: ___ mg Inactive 04/25/2017 [facility] MiraLax 17 gm, 1 pkt, Route: PO, Drug form: PWDR, ONCE, Dosing Weight 70.057, kg, Start date: 04/25/17 12:41:00 RECORDER OF DEEDS, Duration: 1 doses or times, Stop date: 04/25/17 12:41:00 CSTNotes: Dissolve in 8 oz of water or juice. (Same as: Miralax) Inactive 04/25/2017 [facility] dexamethasone 4 mg, 1 mL, Route: IVP, Drug form: INJ, ONCE, Start date: 04/25/17 12:00:00 RECORDER OF DEEDS, Stop date: 04/25/17 12:00:00 CSTNotes: Concentration: 4mg/ml Inactive 04/25/2017 [facility] Lovenox 40 mg/0.4 mL subcutaneous solution 40 mg, SUB-Q, Daily, X 9 day, # 9 ea, 0 Refill(s) Active 04/25/2017 [facility] Percocet 10/325 oral tablet See Instructions, PRN Pain Score 7-10, 1-2 tab PO Q4-6H as needed, # 90 tab, 0 Refill(s), given to patient Active 04/25/2017 [facility] Saline Flush 0.9% 10 ml, Route: IVP, Drug Form: INJ, Dosing Weight 70.057, kg, PRN, PRN Line Flush, Start date: 04/25/17 9:31:00 RECORDER OF DEEDS, Duration: 30 day, Stop date: 05/25/17 9:30:00 CSTNotes: (Same as: BD Posiflush) Inactive 04/25/2017 [facility] multivitamin 1 tab, Route: PO, Drug Form: TAB, Dosing Weight 70.057, kg, Daily, Start date: 04/25/17 9:00:00 RECORDER OF DEEDS, Duration: 30 day, Stop date: 05/24/17 9:00:00 CSTNotes: (Same as:One Tab Daily, Tab-A-Shaka + Beta Carotene) Give with food. Inactive 04/25/2017 [facility] Vitamin D3 400 IntlUnit, 1 tab, Route: PO, Drug form: TAB, Daily, Dosing Weight 70.057, kg, Start date: 04/25/17 9:00:00 RECORDER OF DEEDS, Duration: 30 day, Stop date: 05/24/17 9:00:00 CSTNotes: Same as Vitamin D3 Inactive 04/25/2017 [facility] citalopram 20 mg, 2 tab, Route: PO, Drug form: TAB, Daily, Dosing Weight 70.057, kg, Start date: 04/25/17 9:00:00 RECORDER OF DEEDS, Duration: 30 day, Stop date: 05/24/17 9:00:00 RECORDER OF DEEDS Inactive 04/25/2017 [facility] calcium carbonate 1,000 mg, 2 tab, Route: PO, Drug form: CHEWTAB, Daily, Dosing Weight 70.057, kg, Start date: 04/25/17 9:00:00 RECORDER OF DEEDS, Duration: 30 day, Stop date: 05/24/17 9:00:00 CSTNotes: (Same As: Tums) Calcium Carbonate 500 fl=711 mg elemental calcium Dose= mg calcium carbonate ( mg elemental calcium) Inactive 04/25/2017 [facility] enoxaparin 40 mg, 0.4 mL, Route: SUB-Q, Drug form: INJ, Daily, Dosing Weight 70.057, kg, Start date: 04/25/17 8:55:00 RECORDER OF DEEDS, Duration: 30 day, Stop date: 05/24/17 8:55:00 CSTNotes: (Same as: Lovenox) Inactive 04/25/2017 [facility] Lipitor 10 mg, 1 tab, Route: PO, Drug form: TAB, Bedtime, Start date: 04/24/17 21:00:00 RECORDER OF DEEDS, Duration: 30 day, Stop date: 05/23/17 21:00:00 CSTNotes: (Same As: Lipitor) No Longer Active 04/25/2017 [facility] lovastatin 20 mg, Route: PO, Bedtime, Dosing Weight 70.057, kg, Start date: 04/24/17 21:00:00 RECORDER OF DEEDS, Duration: 30 day, Stop date: 05/23/17 21:00:00 RECORDER OF DEEDS Inactive 04/25/2017 [facility] vancomycin (SCIP) + sodium chloride 0.9% INJ 250 mL 1,000 mg, Route: IVPB, [id number], Dosing Weight 70.057, kg, Time Critical Medication, Start date: 04/24/17 19:00:00 RECORDER OF DEEDS, Duration: 2 doses or times, Stop date: 04/25/17 7:00:00 RECORDER OF DEEDS, Pharmacy to adjust dose for renal function, ABX Indication: Surgical Pr...Notes: TIME CRITICAL MEDICATION (Same As: Vancocin) Infusion rate 2001 mg: infuse over 2.5 hours MEDICATION WASTE Product Size: 1000 mg Product Wasted: ___ mg No Longer Active 04/25/2017 [facility] docusate 100 mg, 1 cap, Route: PO, Drug form: CAP, BID, Dosing Weight 70.057, kg, Start date: 04/24/17 17:00:00 RECORDER OF DEEDS, Duration: 30 day, Stop date: 05/24/17 9:00:00 CSTNotes: (Same as: Colace) (Do Not Crush) No Longer Active 04/24/2017 [facility] ketOROLAC 15 mg, 1 mL, Route: IV, Drug form: INJ, Q8H, Dosing Weight 70.057, kg, Start date: 04/24/17 17:00:00 RECORDER OF DEEDS, Duration: 2 day, Stop date: 04/26/17 9:00:00 CSTNotes: (Same as:Toradol) IV bolus must be given >15 seconds. Give IM administration slowly and deeply into the muscle. Not for use > 4 days. No Longer Active 04/24/2017 [facility] Zofran 4 mg, 2 mL, Route: IV, Drug form: INJ, Q8H, Dosing Weight 70.057, kg, Start date: 04/24/17 16:00:00 RECORDER OF DEEDS, Duration: 3 doses or times, Stop date: 04/25/17 8:00:00 CSTNotes: (Same as: Zofran) MEDICATION WASTE Product Size: 4 mg Product Wasted: ___ mg No Longer Active 04/24/2017 [facility] Cyklokapron + sodium chloride 0.9% INJ 100 mL 1,000 mg, 10 mL, Route: IVPB, ONCE, Start date: 04/24/17 15:30:00 RECORDER OF DEEDS, Stop date: 04/24/17 15:30:00 CSTNotes: (Same As: Cyklokapron) Inactive 04/24/2017 [facility] codeine sulfate 30 mg, 1 tab, Route: PO, Drug form: TAB, Q6H, PRN Headache 1-3, Start date: 04/24/17 13:44:00 RECORDER OF DEEDS, Duration: 30 day, Stop date: 05/24/17 13:43:00 RECORDER OF DEEDS No Longer Active 04/24/2017 [facility] APAP/butalbital/caffeine 1 tab, Route: PO, Drug Form: TAB, Q6H, PRN Headache 1-3, Start date: 04/24/17 13:41:00 RECORDER OF DEEDS, Duration: 30 day, Stop date: 05/24/17 13:40:00 CSTNotes: (fyfewnkoghvcr-fygcpmpjym-rdpmqrjz 325-50-40mg) Do not exceed 4 gm/day of acetaminophen. (Same as: Esgic, Fioricet) No Longer Active 04/24/2017 [facility] ceFAZolin (SCIP) 1 gm, 100 mL, Route: IVPB, Drug form: INJ, ABXQ6H, Dosing Weight 70.057, kg, Start date: 04/24/17 13:30:00 RECORDER OF DEEDS, Duration: 3 doses or times, Stop date: 04/25/17 1:30:00 RECORDER OF DEEDS, ABX Indication: Surgical Prophylaxis No Longer Active 04/24/2017 [facility] Carafate 1 gm, 1 tab, Route: PO, Drug form: TAB, Daily, Dosing Weight 70.057, kg, PRN GI Upset, Start date: 04/24/17 12:48:00 RECORDER OF DEEDS, Duration: 30 day, Stop date: 05/24/17 12:47:00 CSTNotes: May interfere w/enteral feeds - Take 1 hr before or 2 hr after antacids, dairy pdt, meals & minerals - On empty stomach. For patients unable to swallow tablet, dissolve in 10mL - 30mL of water or juice and stir before giving. (Same As: Carafate) No Longer Active 04/24/2017 [facility] ibuprofen 800 mg, Route: PO, Drug form: TAB, Q8H, Dosing Weight 70.057, kg, PRN Pain 4-6/Temp > 100.4 F, Start date: 04/24/17 12:48:00 RECORDER OF DEEDS, Duration: 30 day, Stop date: 05/24/17 12:47:00 RECORDER OF DEEDS Inactive 04/24/2017 [facility] Fiorinal with Codeine 1 cap, Route: PO, Dosing Weight 70.057, kg, Q6H, PRN Headache 1-3, Start date: 04/24/17 12:48:00 RECORDER OF DEEDS, Duration: 30 day, Stop date: 05/24/17 12:47:00 RECORDER OF DEEDS Inactive 04/24/2017 [facility] dexamethasone 6 mg, 1.5 mL, Route: IVP, Drug form: INJ, ONCE, Start date: 04/24/17 12:00:00 RECORDER OF DEEDS, Stop date: 04/24/17 12:00:00 CSTNotes: Concentration: 4mg/ml Inactive 04/24/2017 [facility] Roxicodone 10 mg, 2 tab, Route: PO, Drug form: TAB, Q3H, PRN Pain Score 7-10, Start date: 04/24/17 11:08:00 RECORDER OF DEEDS, Duration: 30 day, Stop date: 05/24/17 11:07:00 CSTNotes: (Same as: Roxicodone) No Longer Active 04/24/2017 [facility] Tylenol 325 mg, 1 tab, Route: PO, Drug form: TAB, Q3H, PRN Pain Score 7-10, Start date: 04/24/17 11:07:00 RECORDER OF DEEDS, Duration: 30 day, Stop date: 05/24/17 11:06:00 CSTNotes: Do not exceed 4 gm/day. (Same as: Tylenol) No Longer Active 04/24/2017 [facility] TRIANA HYDROmorphone 0.5 mg, Route: IVP, Q5Min, Dosing Weight 70.057, kg, PRN Pain Score 7-10, Start date: 04/24/17 10:05:00 RECORDER OF DEEDS, Duration: 4 doses or times, Stop date: Limited # of times Inactive 04/24/2017 [facility] flumazenil 0.2 mg, Route: IVP, PRN, Dosing Weight 70.057, kg, PRN Benzodiazepine Reversal, Initial dose, Start date: 04/24/17 10:05:00 RECORDER OF DEEDS, Duration: 30 day, Stop date: 05/24/17 10:04:00 RECORDER OF DEEDS Inactive 04/24/2017 [facility] KONG fentaNYL 50 microgram, Route: IVP, Q5Min, Dosing Weight 70.057, kg, PRN Pain Score 7-10, Priority: Routine, Start date: 04/24/17 10:05:00 RECORDER OF DEEDS, Duration: 2 doses or times, Stop date: Limited # of times [facility], Route: IVP, Q2MIN, Dosing Weight 70.057, kg, PRN Narcotic Reversal, Start date: 04/24/17 10:05:00 RECORDER OF DEEDS, Duration: 8 doses or times, Stop date: Limited # of times Inactive [facility]hen[facility] 12.5 mg, Route: IVP, Drug form: INJ, Q6H, Dosing Weight 70.057, kg, PRN Itching, Start date: 04/24/17 10:05:00 RECORDER OF DEEDS, Duration: 30 day, Stop date: 05/24/17 10:04:00 RECORDER OF DEEDS Inactive [facility]2017 [facility] 4 mg, Route: IVP, ONCE, Dosing Weight 70.057, kg, PRN Nausea & Vomiting, Start date: 04/24/17 10:05:00 RECORDER OF DEEDS Inactive [facility]2017 [facility] al[facility]er[facility] 0.083% inhalation solution 2.49 mg, Route: NEB, Q20Min, Dosing Weight 70.057, kg, PRN Wheezing, Priority: STAT, Start date: 04/24/17 10:05:00 RECORDER OF DEEDS, Duration: 30 day, Stop date: 05/24/17 10:04:00 RECORDER OF DEEDS Inactive 04/24/2017 [facility] hydrALAZINE 10 mg, Route: IVP, Q20Min, Dosing Weight 70.057, kg, PRN Elevated BP, Start date: 04/24/17 10:05:00 RECORDER OF DEEDS, Duration: 2 doses or times, Stop date: Limited # of times Inactive [facility]24[facility]2017 [facility] 30 mg, Route: IVP, ONCE, Dosing Weight 70.057, kg, Start date: 04/24/17 10:05:00 RECORDER OF DEEDS, Duration: 1 doses or times, Stop date: 04/24/17 10:05:00 RECORDER OF DEEDS Inactive 04/24/2017 [facility] acetaminophen 1,000 mg, Route: PO, Drug form: TAB, ONCE, Dosing Weight 70.057, kg, PRN Pain Score 1-3, Start date: 04/24/17 10:05:00 RECORDER OF DEEDS, Duration: 1 doses or times, Stop date: Limited # of times Inactive 04/24/2017 [facility] oxyCODONE 5 mg, Route: PO, Drug form: TAB, Q4H, Dosing Weight 70.057, kg, PRN Pain Score 4-6, Start date: 04/24/17 10:05:00 RECORDER OF DEEDS, Duration: 30 day, Stop date: 05/24/17 10:04:00 RECORDER OF DEEDS Inactive 04/24/2017 [facility] labetalol 10 mg, Route: IVP, Q5Min, Dosing Weight 70.057, kg, PRN Elevated BP, Start date: 04/24/17 10:05:00 RECORDER OF DEEDS, Duration: 5 doses or times, Stop date: Limited # of times Inactive 04/24/2017 [facility] ketOROLAC (ANES) IV, ONCE Inactive 04/24/2017 [facility] ondansetron (ANES) Route: IV, Drug form: INJ, ONCE, Stop date: 04/24/17 9:54:00 RECORDER OF DEEDS Inactive 04/24/2017 [facility] bisacodyl 10 mg, 1 supp, Route: ND, Drug form: SUPP, Daily, Dosing Weight 70.057, kg, PRN Constipation, Start date: 04/24/17 9:31:00 RECORDER OF DEEDS, Duration: 30 day, Stop date: 05/24/17 9:30:00 CSTNotes: (Same As: Dulcolax, Bisco-Lax) No Longer Active 04/24/2017 [facility] diphenhydrAMINE 12.5 mg, 0.5 tab, Route: PO, Drug form: TAB, Q6H, Dosing Weight 70.057, kg, PRN Itching, Start date: 04/24/17 9:31:00 RECORDER OF DEEDS, Duration: 30 day, Stop date: 05/24/17 9:30:00 RECORDER OF DEEDS No Longer Active 04/24/2017 [facility] [place] 10/325 oral tablet 1 tab, Route: PO, Drug Form: TAB, Dosing Weight 70.057, kg, Q3H, PRN Pain Score 4-6, Start date: 04/24/17 9:31:00 RECORDER OF DEEDS, Duration: 30 day, Stop date: 05/24/17 9:30:00 CSTNotes: Do not exceed 4gm/day of acetaminophen. (Same as: [place] 325/10) No Longer Active 04/24/2017 [facility] [place] 5/325 oral tablet 1 tab, Route: PO, Drug Form: TAB, Dosing Weight 70.057, kg, Q3H, PRN Pain Score 1-3, Start date: 04/24/17 9:31:00 RECORDER OF DEEDS, Duration: 30 day, Stop date: 05/24/17 9:30:00 CSTNotes: (Same as: [place] 325/5) Do not exceed 4gm/day of acetaminophen. No Longer Active 04/24/2017 [facility] Percocet 10/325 oral tablet 1 tab, Route: PO, Drug Form: TAB, Dosing Weight 70.057, kg, Q3H, PRN Pain Score 7-10, Start date: 04/24/17 9:31:00 RECORDER OF DEEDS, Duration: 30 day, Stop date: 05/24/17 9:30:00 RECORDER OF DEEDS Inactive 04/24/2017 [facility] Dilaudid 2 mg, 1 tab, Route: PO, Drug form: TAB, Q3H, Dosing Weight 70.057, kg, PRN Other -See Comment, Start date: 04/24/17 9:31:00 RECORDER OF DEEDS, Duration: 30 day, Stop date: 05/24/17 9:30:00 CSTNotes: (Same as: Dilaudid) No Longer Active 04/24/2017 [facility] dexamethasone 2 mg, Route: PO, ONCE, Dosing Weight 70.057, kg, Start date: 04/24/17 9:31:00 RECORDER OF DEEDS, Stop date: 04/24/17 9:31:00 RECORDER OF DEEDS Inactive 04/24/2017 [facility] Zofran 4 mg, Route: IV, Q6H, Dosing Weight 70.057, kg, PRN Nausea, Start date: 04/24/17 9:31:00 RECORDER OF DEEDS, Duration: 30 day, Stop date: 05/24/17 9:30:00 RECORDER OF DEEDS Inactive 04/24/2017 [facility] tranexamic acid 1,000 mg, Route: IV, ONCE, Dosing Weight 70.057, kg, Start date: 04/24/17 9:31:00 RECORDER OF DEEDS, Stop date: 04/24/17 9:31:00 RECORDER OF DEEDS Inactive 04/24/2017 [facility] sodium chloride 0.45% 1000 ml INJ 1,000 mL 1,000 mL, Rate: 75 ml/hr, Infuse over: 13.3 hr, Route: IV, Dosing Weight 70.057 kg, Total Volume: 1,000, Start date: 04/24/17 9:31:00 RECORDER OF DEEDS, Duration: 30 day, Stop date: 05/24/17 9:30:00 RECORDER OF DEEDS No Longer Active 04/24/2017 [facility] tranexamic acid (ANES) (ANES) Route: IV, Drug form: INJ, Start date: 04/24/17 9:25:00 RECORDER OF DEEDS, Stop date: 04/24/17 10:25:00 RECORDER OF DEEDS Inactive 04/24/2017 [facility] dexamethasone (ANES) Route: IV, Drug form: INJ, ONCE, Stop date: 04/24/17 8:43:00 RECORDER OF DEEDS Inactive 04/24/2017 [facility] hydromorphone (ANES) Route: INTRATHECAL, Drug form: INJ, ONCE, Stop date: 04/24/17 8:38:00 RECORDER OF DEEDS Inactive 04/24/2017 [facility] lidocaine (ANES) Route: IV, Drug form: INJ, ONCE, Stop date: 04/24/17 8:33:00 RECORDER OF DEEDS Inactive 04/24/2017 [facility] propofol (ANES) Route: IV, Drug form: INJ, ONCE, Stop date: 04/24/17 8:33:00 RECORDER OF DEEDS Inactive 04/24/2017 [facility] LR 1000 mL INJ (ANES) Route: IV, Total Volume: 1,000, Start date: 04/24/17 7:43:00 RECORDER OF DEEDS, Stop date: 04/24/17 8:43:00 RECORDER OF DEEDS Inactive 04/24/2017 [facility] ceFAZolin (ANES) (ANES) Route: IV, Drug form: INJ, Start date: 04/24/17 7:43:00 RECORDER OF DEEDS, Stop date: 04/24/17 8:43:00 RECORDER OF DEEDS Inactive 04/24/2017 [facility] vancomycin (ANES) (ANES) Route: IV, Drug form: INJ, Start date: 04/24/17 7:43:00 RECORDER OF DEEDS, Stop date: 04/24/17 8:43:00 RECORDER OF DEEDS Inactive 04/24/2017 [facility] Lactated Ringers Injection IV 1000 mL 1,000 mL, Rate: 25 ml/hr, Infuse over: 40 hr, Route: IV, Dosing Weight 70.057 kg, Total Volume: 1,000, Start date: 04/24/17 7:40:00 RECORDER OF DEEDS, Duration: 30 day, Stop date: 05/24/17 7:39:00 RECORDER OF DEEDS Inactive 04/24/2017 [facility] oxyCONTIN 10 mg, Route: PO, Drug form: ERTAB, ONCALL, Dosing Weight 70.057, kg, Start date: 04/24/17 7:00:00 RECORDER OF DEEDS, Duration: 30 day, Stop date: 05/24/17 6:59:00 RECORDER OF DEEDS Inactive 04/24/2017 [facility] Tylenol 1,000 mg, Route: PO, ONCALL, Dosing Weight 70.057, kg, Start date: 04/24/17 7:00:00 RECORDER OF DEEDS, Duration: 30 day, Stop date: 05/24/17 6:59:00 RECORDER OF DEEDS Inactive 04/24/2017 [facility] tranexamic acid + sodium chloride 0.9% INJ 100 mL 1,000 mg, 10 mL, Route: IV, ONCALL, Dosing Weight 70.057, kg, Start date: 04/24/17 7:00:00 RECORDER OF DEEDS, Duration: 6 hr, Stop date: 04/24/17 17:08:00 CSTNotes: (Same As: Cyklokapron) No Longer Active 04/24/2017 [facility] vancomycin + sodium chloride 0.9% INJ 250 mL 1,050.855 mg, Route: IVPB, ONCALL, Dosing Weight 70.057, kg, Start date: 04/24/17 7:00:00 RECORDER OF DEEDS, Duration: 6 hr, Stop date: 04/24/17 12:59:00 RECORDER OF DEEDS, ABX Indication: Surgical ProphylaxisNotes: TIME CRITICAL MEDICATION (Same As: Vancocin) Infusion rate 2001 mg: infuse over 2.5 hours MEDICATION WASTE Product Size: 1000 mg Product Wasted: ___ mg No Longer Active 04/24/2017 [facility] ceFAZolin 2 gm, 100 mL, Route: IVPB, Drug form: INJ, ONCALL, Dosing Weight 70.057, kg, Start date: 04/24/17 7:00:00 RECORDER OF DEEDS, Duration: 6 hr, Stop date: 04/24/17 12:59:00 RECORDER OF DEEDS, ABX Indication: Surgical ProphylaxisNotes: Same as: Ancef No Longer Active 04/24/2017 [facility] celecoxib 200 mg, Route: PO, ONCALL, Dosing Weight 70.057, kg, (for CrCl > 90 mL/min), Start date: 04/24/17 7:00:00 RECORDER OF DEEDS, Duration: 30 day, Stop date: 05/24/17 6:59:00 RECORDER OF DEEDS Inactive 04/24/2017 [facility] ERICKSON Pericapsular INJ 100 mL, Route: InFILtration(local), Drug Form: INJ, Dosing Weight 70.057, kg, ONCALL, Start date: 04/24/17 7:00:00 RECORDER OF DEEDS, Duration: 6 hr, Stop date: 04/24/17 17:07:00 CSTNotes: NOT FOR IV use Ropivacaine 5 mg/mL (49.25 mL) Epinephrine 1 mg/mL (0.5 mL) Clonidine 0.1 mg/mL (0.8 mL) Ketorolac 30 mg/mL (1 mL) Normal Saline 48.45 mL No Longer Active 04/24/2017 [facility] Fiorinal with Codeine 1 cap, PO, PRN Headache 1-3 Active 04/06/2017 [facility] Vitamin D3 oral tablet 400 IntlUnit=1 tab, PO, Daily Active 04/06/2017 [facility] lovastatin 20 mg, PO, Bedtime, 0 Refill(s) Active 04/06/2017 [facility] citalopram 20 mg, PO, Daily, 0 Refill(s) Active 04/06/2017 [facility] ibuprofen 800 mg oral tablet 800 mg=1 tab, PO, PRN Pain 1-3/Temp > 100.4 F, as needed No Longer Active 04/06/2017 [facility] Carafate 1 g oral tablet 1 gm=1 tab, PO, Daily, PRN GI Upset Active 04/06/2017 [facility] Sulfamethoxazole 800 MG / Trimethoprim 160 MG Oral Tablet [Bactrim] 1 tab, PO, BID, # 14 tab, 0 Refill(s) Active 02/28/2014 [facility] Promethazine 6.25 mg, Route: IVPB, ONCE, Dosing Weight 69.545, kg, PRN Nausea & Vomiting, Start date: 02/28/14 9:44:00 Inactive 02/28/2014 [facility] Glycopyrrolate 0.2 mg, Route: IVP, Q5Min, Dosing Weight 69.545, kg, PRN Bradycardia, Start date: 02/28/14 9:44:00, Duration: 3 doses or times, Stop date: Limited # of times Inactive 02/28/2014 [facility] Ondansetron 4 mg, Route: IVP, ONCE, Dosing Weight 69.545, kg, PRN Nausea & Vomiting, Start date: 02/28/14 9:44:00 Inactive 02/28/2014 [facility] Morphine 4 mg, Route: IVP, Q5Min, Dosing Weight 69.545, kg, PRN Pain Score 7-10, Start date: 02/28/14 9:44:00, Duration: 3 doses or times, Stop date: Limited # of times Inactive 02/28/2014 [facility] Naloxone 0.04 mg, Route: IVP, Q2MIN, Dosing Weight 69.545, kg, PRN Narcotic Reversal, Start date: 02/28/14 9:44:00, Duration: 8 doses or times, Stop date: Limited # of times Inactive 02/28/2014 [facility] Hydralazine 10 mg, Route: IVP, Q20Min, Dosing Weight 69.545, kg, PRN Elevated BP, Start date: 02/28/14 9:44:00, Duration: 2 doses or times, Stop date: Limited # of times Inactive 02/28/2014 [facility] Metoprolol 1 mg, Route: IVP, Q5Min, Dosing Weight 69.545, kg, PRN Other -See Comment, Start date: 02/28/14 9:44:00, Duration: 5 doses or times, Stop date: Limited # of times Inactive 02/28/2014 [facility] Ketorolac 30 mg, Route: IVP, ONCE, Dosing Weight 69.545, kg, Start date: 02/28/14 9:44:00, Duration: 1 doses or times, Stop date: 02/28/14 9:44:00 Inactive 02/28/2014 [facility] Fentanyl 25 microgram, Route: IVP, Q5Min, Dosing Weight 69.545, kg, PRN Pain Score 4-6, Start date: 02/28/14 9:44:00, Duration: 4 doses or times, Stop date: Limited # of times Inactive 02/28/2014 [facility] Hydromorphone 0.5 mg, Route: IVP, Q5Min, Dosing Weight 69.545, kg, PRN Pain Score 7-10, Start date: 02/28/14 9:44:00, Duration: 4 doses or times, Stop date: Limited # of times Inactive 02/28/2014 [facility] Meperidine 12.5 mg, Route: IVP, Q30Min, Dosing Weight 69.545, kg, PRN Other -See Comment, For shivering, Start date: 02/28/14 9:44:00, Duration: 2 doses or times, Stop date: Limited # of times Inactive 02/28/2014 [facility] Flumazenil 0.2 mg, Route: IVP, PRN, Dosing Weight 69.545, kg, PRN Benzodiazepine Reversal, Initial dose, Start date: 02/28/14 9:44:00, Duration: 30 day, Stop date: 03/30/14 9:43:00 Inactive 02/28/2014 [facility] Oxycodone 5 mg, Route: PO, Drug form: TAB, Q4H, Dosing Weight 69.545, kg, PRN Pain Score 4-6, Start date: 02/28/14 9:44:00, Duration: 30 day, Stop date: 03/30/14 9:43:00 Inactive 02/28/2014 [facility] Diphenhydramine 12.5 mg, Route: IVP, Drug form: INJ, Q6H, Dosing Weight 69.545, kg, PRN Itching, Start date: 02/28/14 9:44:00, Duration: 30 day, Stop date: 03/30/14 9:43:00 Inactive 02/28/2014 [facility] Ciprofloxacin 500 MG Oral Tablet [Cipro] 500 mg=1 tab, PO, Q12H, # 14 tab, 0 Refill(s) Active 02/28/2014 [facility] Acetaminophen 325 MG / Hydrocodone Bitartrate 5 MG Oral Tablet 1 tab, Route: PO, Drug Form: TAB, Dosing Weight 69.545, kg, Q4H, PRN Pain Score 4-6, Start date: 02/28/14 9:19:00, Duration: 30 day, Stop date: 03/30/14 9:18:00Notes: (Same as: [place] 325/5) Do not exceed 4gm/day of acetaminophen. Inactive 02/28/2014 [facility] Hydromorphone 0.3 mg, 0.3 mL, Route: IVP, Drug form: INJ, Q3H, Dosing Weight 69.545, kg, PRN Pain Score 4-6, Start date: 02/28/14 9:19:00, Duration: 30 day, Stop date: 03/30/14 9:18:00 Inactive 02/28/2014 [facility] Gentamicin Sulfate (JAIL) 120 mg, 100 mL, Route: IVPB, Drug form: INJ, ONCE, Dosing Weight 69.545, kg, Start date: 02/28/14 7:06:00, Stop date: 02/28/14 7:06:00Notes: (Same as Garamycin) Inactive 02/28/2014 [facility] Ancef + Sodium Chloride 0.9% IV 100 mL 1 gm, Route: IVPB, ONCE, Dosing Weight 69.545, kg, Start date: 02/28/14 7:06:00, Stop date: 02/28/14 7:06:00Notes: (Same As: [place]) Inactive 02/28/2014 [facility] Calcium Chloride 0.0014 MEQ/ML / Potassium Chloride 0.004 MEQ/ML / Sodium Chloride 0.103 MEQ/ML / Sodium Lactate 0.028 MEQ/ML Injectable Solution 1,000 mL, Rate: 25 ml/hr, Infuse over: 40 hr, Route: IV, Dosing Weight 69.545 kg, Total Volume: 1,000, Start date: 02/28/14 7:05:00, Duration: 30 day, Stop date: 03/30/14 7:04:00 Inactive 02/28/2014 [facility] Multiple Vitamins oral tablet 1 tab, PO, Daily, # 30 tab, 0 Refill(s) Active 02/21/2014 [facility] Calcium Carbonate 1,200 mg, PO, Daily, 0 Refill(s) Active 02/21/2014 [facility] Sertraline 100 MG Oral Tablet [Zoloft] 100 mg=1 tab, PO, Daily, # 30 tab, 0 Refill(s) Active 02/21/2014 [facility] losartan 25 mg oral tablet 25 mg=1 tab, PO, Daily, # 30 tab, 0 Refill(s) Active 02/21/2014 [facility] Allergies, Adverse Reactions, Alerts No Known Medication Allergies Immunizations No Data Provided for This Section Results Order Name Results Value Reference Range Date Interpretation Comments Source CHEM PANEL B/C Ratio 27 6 - 25 07/20/2018 [facility] CHEM PANEL AGAP 9.2 10.0 - 20.0 07/20/2018 [facility] CHEM PANEL A/G Ratio 0.9 0.7 - 1.6 07/20/2018 [facility] CHEM PANEL Globulin 3.9 2.7 - 4.2 07/20/2018 [facility] CHEM PANEL Albumin Lvl 3.5 3.5 - 5.0 07/20/2018 [facility] CHEM PANEL Total Protein 7.4 6.4 - 8.4 07/20/2018 [facility] CHEM PANEL Chloride Lvl 105 95 - 109 07/20/2018 [facility] CHEM PANEL Calcium Lvl 8.6 8.5 - 10.5 07/20/2018 [facility] CHEM PANEL CO2 25 24 - 32 07/20/2018 [facility] CHEM PANEL Glucose Lvl 115 70 - 99 07/20/2018 [facility] CHEM PANEL Potassium Lvl 4.2 3.5 - 5.1 07/20/2018 [facility] CHEM PANEL Sodium Lvl 135 135 - 145 07/20/2018 [facility] CHEM PANEL Creatinine Lvl 0.78 0.50 - 1.40 07/20/2018 [facility] CHEM PANEL BUN 21 7 - 22 07/20/2018 [facility] CHEM PANEL Alk Phos 127 39 - 136 07/20/2018 [facility] CHEM PANEL AST 24 0 - 37 07/20/2018 [facility] CHEM PANEL ALT 26 0 - 65 07/20/2018 [facility] CHEM PANEL Bili Total 0.3 0.2 - 1.3 07/20/2018 [facility] CHEM PANEL eGFR 77 07/20/2018 Result Comment: The eGFR is calculated using the [...] from the National Kidney Disease Education Program (NKDEP) which additionally recommends that when the eGFR is used in patients with extremes of body mass index for purposes of drug dosing, the eGFR should be multiplied by the estimated BMI. [facility] HEMATOLOGY MCHC 34.1 32.0 - 36.0 07/20/2018 [facility] HEMATOLOGY RDW 13.8 11.5 - 14.5 07/20/2018 [facility] HEMATOLOGY Platelet 242 133 - 450 07/20/2018 [facility] HEMATOLOGY MPV 8.5 7.4 - 10.4 07/20/2018 [facility] HEMATOLOGY Hct 43.4 36.0 - 48.0 07/20/2018 [facility] HEMATOLOGY MCV 94.7 80.0 - 98.0 07/20/2018 [facility] MCH 32.3 27.0 - 31.0 07/20/2018 [facility] HEMATOLOGY Hgb 14.8 12.0 - 16.0 07/20/2018 [facility] HEMATOLOGY RBC 4.58 4.20 - 5.40 07/20/2018 [facility] HEMATOLOGY WBC 10.0 3.7 - 10.4 07/20/2018 [facility] HEMATOLOGY Eosinophils 1.0 0.0 - 4.0 07/20/2018 [facility] HEMATOLOGY Monocytes 6.7 2.0 - 12.0 07/20/2018 [facility] HEMATOLOGY Basophils 0.4 0.0 - 1.0 07/20/2018 [facility] HEMATOLOGY Neutrophils # 7.4 1.5 - 8.1 07/20/2018 [facility] HEMATOLOGY Lymphocytes # 1.9 1.0 - 5.5 07/20/2018 [facility] HEMATOLOGY Eosinophils # 0.1 0.0 - 0.5 07/20/2018 [facility] HEMATOLOGY Monocytes # 0.7 0.0 - 0.8 07/20/2018 [facility] HEMATOLOGY Segs 73.4 45.0 - 75.0 07/20/2018 [facility] HEMATOLOGY Lymphocytes 18.5 20.0 - 40.0 07/20/2018 [facility] URINE AND STOOL UA RBC >182 0 - 2 07/20/2018 [facility] URINE AND STOOL UA WBC 6 0 - 5 07/20/2018 [facility] URINE AND STOOL UA Leuk Est Negative (07/19/18 11:23 PM) Negative 07/20/2018 [facility] URINE AND STOOL UA Sq Epi Occasional /LPF Few /LPF 07/20/2018 [facility] URINE AND STOOL UA Nitrite Positive *ABN* (07/19/18 11:23 PM) Negative 07/20/2018 [facility] URINE AND STOOL UA Urobilinogen 4.0 0.1 - 1.0 07/20/2018 [facility] URINE AND STOOL UA Blood Large *ABN* (07/19/18 11:23 PM) Negative 07/20/2018 [facility] URINE AND STOOL UA Bili Negative *NA* (07/19/18 11:23 PM) Negative 07/20/2018 [facility] URINE AND STOOL UA Ketones Negative *NA* (07/19/18 11:23 PM) Negative 07/20/2018 [facility] URINE AND STOOL UA Glucose Negative *NA* (07/19/18 11:23 PM) Negative 07/20/2018 [facility] URINE AND STOOL UA Protein 30 mg/dL Negative mg/dL 07/20/2018 [facility] URINE AND STOOL UA pH 5.0 5.0 - 8.0 07/20/2018 [facility] URINE AND STOOL UA Spec Grav 1.019 <=1.030 07/20/2018 [facility] URINE AND STOOL UA Bacteria Occasional /HPF None Seen /HPF 07/20/2018 [facility] URINE AND STOOL UA Color Sheela 07/20/2018 [facility] URINE AND STOOL UA Turbidity Clear (07/19/18 11:23 PM) Clear 07/20/2018 [facility] ELECTROLYTES AGAP 12.3 10.0 - 20.0 04/25/2017 [facility] ELECTROLYTES BUN 13 7 - 22 04/25/2017 [facility] ELECTROLYTES eGFR 93 04/25/2017 Result Comment: The eGFR is calculated using the [...] from the National Kidney Disease Education Program (NKDEP) which additionally recommends that when the eGFR is used in patients with extremes of body mass index for purposes of drug dosing, the eGFR should be multiplied by the estimated BMI. [facility] ELECTROLYTES Glucose Lvl 141 70 - 99 04/25/2017 [facility] ELECTROLYTES Creatinine Lvl 0.62 0.50 - 1.40 04/25/2017 [facility] ELECTROLYTES Sodium Lvl 140 135 - 145 04/25/2017 [facility] ELECTROLYTES Potassium Lvl 4.3 3.5 - 5.1 04/25/2017 [facility] ELECTROLYTES Chloride Lvl 103 95 - 109 04/25/2017 [facility] ELECTROLYTES Calcium Lvl 8.8 8.5 - 10.5 04/25/2017 [facility] ELECTROLYTES CO2 29 24 - 32 04/25/2017 [facility] HEMATOLOGY Lymphocytes # 0.9 1.0 - 5.5 04/25/2017 [facility] HEMATOLOGY Monocytes 6.4 2.0 - 12.0 04/25/2017 [facility] HEMATOLOGY Segs-Bands # 13.5 1.5 - 8.1 04/25/2017 [facility] HEMATOLOGY Basophils 0.1 0.0 - 1.0 04/25/2017 [facility] Monocytes # 1.0 0.0 - 0.8 04/25/2017 [facility] Lymphocytes 5.8 20.0 - 40.0 04/25/2017 [facility] Segs 87.7 45.0 - 75.0 04/25/2017 [facility] RBC 3.69 4.20 - 5.40 04/25/2017 [facility] HEMATOLOGY WBC 15.4 3.7 - 10.4 04/25/2017 [facility] MCV 94.5 80.0 - 98.0 04/25/2017 [facility] Hct 34.9 36.0 - 48.0 04/25/2017 [facility] MCHC 34.0 32.0 - 36.0 04/25/2017 [facility] MCH 32.1 27.0 - 31.0 04/25/2017 [facility] Hgb 11.8 12.0 - 16.0 04/25/2017 [facility] MPV 9.0 7.4 - 10.4 04/25/2017 [facility] Platelet 193 133 - 450 04/25/2017 [facility] RDW 12.8 11.5 - 14.5 04/25/2017 [facility] BLOOD BANK RESULTS Antibody Scrn Negative (04/24/17 6:23 AM) 04/24/2017 [facility] BLOOD [facility] RESULTS ABO/Rh B POS 04/24/2017 [facility] BACTERIAL - SEROLOGY MRSA by PCR Negative (04/06/17 8:56 AM) 04/06/2017 [facility] BLOOD [facility] RESULTS Antibody Scrn Negative (04/06/17 8:56 AM) 04/06/2017 [facility] BLOOD BANK RESULTS ABO/Rh B POS 04/06/2017 [facility] CHEM PANEL eGFR 97 04/06/2017 Result Comment: The eGFR is calculated using the [...] from the National Kidney Disease Education Program (NKDEP) which additionally recommends that when the eGFR is used in patients with extremes of body mass index for purposes of drug dosing, the eGFR should be multiplied by the estimated BMI. [facility] CHEM PANEL CO2 33 24 - 32 04/06/2017 [facility] CHEM PANEL Chloride Lvl 102 95 - 109 04/06/2017 [facility] CHEM PANEL Calcium Lvl 9.5 8.5 - 10.5 04/06/2017 [facility] CHEM PANEL Potassium Lvl 3.6 3.5 - 5.1 04/06/2017 [facility] CHEM PANEL Glucose Lvl 87 70 - 99 04/06/2017 [facility] CHEM PANEL Sodium Lvl 140 135 - 145 04/06/2017 [facility] CHEM PANEL Creatinine Lvl 0.55 0.50 - 1.40 04/06/2017 [facility] CHEM PANEL BUN 8 7 - 22 04/06/2017 [facility] CHEM PANEL AGAP 8.6 10.0 - 20.0 04/06/2017 [facility] HEMATOLOGY Basophils 0.6 0.0 - 1.0 04/06/2017 [facility] HEMATOLOGY Lymphocytes # 1.9 1.0 - 5.5 04/06/2017 [facility] HEMATOLOGY Segs-Bands # 5.6 1.5 - 8.1 04/06/2017 [facility] HEMATOLOGY Eosinophils 2.0 0.0 - 4.0 04/06/2017 [facility] HEMATOLOGY Monocytes # 0.6 0.0 - 0.8 04/06/2017 [facility] HEMATOLOGY Basophils # 0.1 0.0 - 0.2 04/06/2017 [facility] HEMATOLOGY Eosinophils # 0.2 0.0 - 0.5 04/06/2017 [facility] HEMATOLOGY Monocytes 7.0 2.0 - 12.0 04/06/2017 [facility] HEMATOLOGY Segs 67.3 45.0 - 75.0 04/06/2017 [facility] HEMATOLOGY Lymphocytes 23.1 20.0 - 40.0 04/06/2017 [facility] HEMATOLOGY PTT 26.8 22.9 - 35.8 04/06/2017 [facility] HEMATOLOGY PT 12.5 12.0 - 14.7 04/06/2017 [facility] HEMATOLOGY INR 0.93 0.85 - 1.17 04/06/2017 [facility] HEMATOLOGY MPV 8.4 7.4 - 10.4 04/06/2017 [facility] HEMATOLOGY RDW 12.5 11.5 - 14.5 04/06/2017 [facility] HEMATOLOGY MCHC 34.3 32.0 - 36.0 04/06/2017 [facility] HEMATOLOGY Platelet 277 133 - 450 04/06/2017 [facility] HEMATOLOGY MCV 93.1 80.0 - 98.0 04/06/2017 [facility] HEMATOLOGY MCH 32.0 27.0 - 31.0 04/06/2017 [facility] HEMATOLOGY WBC 8.3 3.7 - 10.4 04/06/2017 [facility] HEMATOLOGY RBC 4.65 4.20 - 5.40 04/06/2017 [facility] HEMATOLOGY Hct 43.3 36.0 - 48.0 04/06/2017 [facility] HEMATOLOGY Hgb 14.9 12.0 - 16.0 04/06/2017 [facility] URINE AND STOOL UA Color Ltyellow 04/06/2017 [facility] URINE AND STOOL UA Sq Epi None Seen 04/06/2017 [facility] URINE AND STOOL UA Ketones Negative mg/dL Negative mg/dL 04/06/2017 [facility] URINE AND STOOL UA Urobilinogen <=1.0 mg/dL 0.1 - 1.0 04/06/2017 [facility] URINE AND STOOL UA Leuk Est Negative (04/06/17 8:56 AM) Negative 04/06/2017 [facility] URINE AND STOOL UA Blood Negative (04/06/17 8:56 AM) Negative 04/06/2017 [facility] URINE AND STOOL UA Nitrite Negative (04/06/17 8:56 AM) Negative 04/06/2017 [facility] URINE AND STOOL UA WBC 1 0 - 5 04/06/2017 [facility] URINE AND STOOL UA RBC 3 0 - 2 04/06/2017 [facility] URINE AND STOOL UA Bili Negative *NA* (04/06/17 8:56 AM) Negative 04/06/2017 [facility] URINE AND STOOL UA Turbidity Clear (04/06/17 8:56 AM) Clear 04/06/2017 [facility] URINE AND STOOL UA Glucose Negative mg/dL Negative mg/dL 04/06/2017 [facility] URINE AND STOOL UA Spec Grav 1.004 <=1.030 04/06/2017 [facility] URINE AND STOOL UA pH 5.0 5.0 - 8.0 04/06/2017 [facility] URINE AND STOOL UA Protein Negative mg/dL Negative mg/dL 04/06/2017 [facility] ELECTROLYTES AGAP 9.8 10.0 - 20.0 02/21/2014 [facility] ELECTROLYTES eGFR 102 02/21/2014 <sup>1</sup>Result Comment: The eGFR is calculated using the CKD-EPI formula. In most young, healthy individuals the eGFR will be >90 mL/min/1.73m2. The eGFR declines with age. An eGFR of 60-89 may be normal in some populations, particularly the elderly, for whom the CKD-EPI formula has not been extensively validated. Use of the eGFR is not recommended in the following populations:& lt;br/>
Individuals with unstable creatinine concentrations, including patients and those with serious co-morbid conditions.

Patients with extremes in muscle mass or diet.

The data above are obtained from the National Kidney Disease Education Program (NKDEP) which additionally recommends that when the eGFR is used in patients with extremes of body mass index for purposes of drug dosing, the eGFR should be multiplied by the estimated BMI. [facility] ELECTROLYTES Chloride Lvl 104 95 - 109 02/21/2014 [facility] ELECTROLYTES Sodium Lvl 138 135 - 145 02/21/2014 [facility] ELECTROLYTES Potassium Lvl 3.8 3.5 - 5.1 02/21/2014 [facility] ELECTROLYTES Creatinine Lvl 0.5 0.5 - 1.4 02/21/2014 [facility] ELECTROLYTES Glucose Lvl 81 70 - 99 02/21/2014 <sup>2</sup>Interpretive Data: Adult reference range values reflect the clinical guidelines
of the [place] [employer]. [facility] ELECTROLYTES BUN 10 7 - 22 02/21/2014 [facility] ELECTROLYTES Calcium Lvl 9.4 8.5 - 10.5 02/21/2014 [facility] ELECTROLYTES CO2 28 24 - 32 02/21/2014 [facility] HEMATOLOGY PTT 27.1 22.9 - 35.8 02/21/2014 <sup>4</sup>Interpretive Data: Heparin Therapeutic Range: 57 - 92 Seconds [facility] HEMATOLOGY INR 0.91 0.85 - 1.17 02/21/2014 <sup>3</sup>Interpretive Data: RECOMMENDED RANGES FOR PROTIME INR:
2.0-3.0 for most medical and surgical thromboembolic states.
2.5-3.5 for artificial heart valves and recurrent embolism.

INR SHOULD BE USED ONLY FOR PATIENTS ON STABLE ANTICOAGULANT THERAPY. [facility] PT 12.2 12.0 - 14.7 02/21/2014 [facility] MPV 8.7 7.4 - 10.4 02/21/2014 [facility] Platelet 254 133 - 450 02/21/2014 [facility] MCHC 34.5 32.0 - 36.0 02/21/2014 [facility] RBC 4.43 4.20 - 5.40 02/21/2014 [facility] RDW 12.6 11.5 - 14.5 02/21/2014 [facility] MCH 31.9 27.0 - 31.0 02/21/2014 [facility] Hct 40.9 36.0 - 48.0 02/21/2014 [facility] MCV 92.5 80.0 - 98.0 02/21/2014 [facility] Hgb 14.1 12.0 - 16.0 02/21/2014 [facility] WBC 6.9 3.7 - 10.4 02/21/2014 [facility] HEMATOLOGY Eosinophils # 0.2 0.0 - 0.5 02/21/2014 [facility] Lymphocytes # 2.0 1.0 - 5.5 02/21/2014 [facility] HEMATOLOGY Segs-Bands # 4.1 1.5 - 8.1 02/21/2014 [facility] Monocytes # 0.5 0.0 - 0.8 02/21/2014 [facility] Monocytes 7.5 2.0 - 12.0 02/21/2014 [facility] Lymphocytes 29.8 20.0 - 40.0 02/21/2014 [facility] HEMATOLOGY Basophils 0.7 0.0 - 1.0 02/21/2014 [facility] HEMATOLOGY Eosinophils 2.4 0.0 - 4.0 02/21/2014 [facility] Segs 59.6 45.0 - 75.0 02/21/2014 [facility] URINE AND STOOL UA Urobilinogen <=1.0 mg/dL 0.1 - 1.0 02/21/2014 [facility] URINE AND STOOL UA Color Ltyellow 02/21/2014 [facility] URINE AND STOOL UA RBC 1 0 - 2 02/21/2014 [facility] URINE AND STOOL UA WBC 1 0 - 5 02/21/2014 [facility] URINE AND STOOL UA Protein Negative mg/dL Negative mg/dL 02/21/2014 [facility] URINE AND STOOL UA Glucose Negative mg/dL Negative mg/dL 02/21/2014 [facility] URINE AND STOOL UA Ketones Negative mg/dL Negative mg/dL 02/21/2014 [facility] URINE AND STOOL UA Bili Negative *NA* (02/21/14 11:05 AM) Negative 02/21/2014 [facility] URINE AND STOOL UA Spec Grav 1.009 <=1.030 02/21/2014 [facility] URINE AND STOOL UA pH 7.0 5.0 - 8.0 02/21/2014 [facility] URINE AND STOOL UA Leuk Est Trace *ABN* (02/21/14 11:05 AM) Negative 02/21/2014 [facility] URINE AND STOOL UA Sq Epi Occasional /LPF Few /LPF 02/21/2014 [facility] URINE AND STOOL UA Blood Negative (02/21/14 11:05 AM) Negative 02/21/2014 [facility] URINE AND STOOL UA Nitrite Negative (02/21/14 11:05 AM) Negative 02/21/2014 [facility] URINE AND STOOL UA Turbidity Clear (02/21/14 11:05 AM) Clear 02/21/2014 [facility] Pathology Reports No Data Provided for This Section Diagnostic Reports Report Value Date Source Breast Mammo Scrn MANN incl CAD MA BILATERAL DIGITAL SCREENING MAMMOGRAM WITH CAD: 01/15/2019 CLINICAL: /Z12.31 Encounter For Screening Mammogram For Malignant Neoplasm Of Breast. Current study was evaluated with a Computer Aided Detection (CAD) system. COMPARISON:Comparison is made to exams dated: 11/24/2017 mammogram, 05/18/2015 mammogram, 04/07/2014 mammogram, 04/06/2013 mammogram, and 03/13/2012 mammogram - [facility]. TECHNIQUE: Mammographic views were obtained using digital acquisition. Current study was also evaluated with a Computer Aided Detection (CAD) system. FINDINGS: There are scattered fibroglandular densities in both breasts. No significant masses, calcifications, or other findings are seen in either breast. There has been no significant interval change. IMPRESSION: NEGATIVE RECOMMENDATION:There is no mammographic evidence of malignancy. A 1 year screening mammogram is recommended.(01/16/2020) This exam was interpreted at [id number] at [facility] [place]. Professional services are provided by the [facility]. Gunjan man/penrad:01/15/2019 11:21:22 Parking Enforcement Manager(s): Terri Wilcox RT(R)(M[facility] 1/2 Mammogram BI-RADS: 1 Negative 01/15/2019 [facility]ade[facility] Abdomen AP DX Patient Name: JAYDA REILLY : 1950 Age: 68 years, Female MR: [id number] Study: Abdomen AP DX 07/26/2018 8:20 RECORDER OF DEEDS Indication: - K21.9 Gastro-esophageal reflux disease without esophagitis, I10 Essential (primary) hypertension, N20.0 Calculus of kidney. Comparison: CT abdomen and pelvis 07/20/2018 Findings: Lines/tubes: None. Bowel: No air-fluid levels. No pneumoperitoneum. Moderate amount of retained feces and air are noted in the colon and rectum. Calcifications: No calcifications project over the renal shadows, expected course of the ureters bilaterally, and urinary bladder. Soft tissues: Cholecystectomy clips. Phleboliths are present in the pelvis. Bones: No acute osseous abnormality. Degenerative changes of the lumbar spine. IMPRESSION: No acute radiographic abnormality. The calculi visualized in the previous CT in the distal right ureter are not well appreciated on the present examination. SL: [id number] 07/26/2018 [facility] Renal Stone CT Clinical Indication: -Pain and hematuria Comparison: 07/28/2017 TECHNIQUE: Noncontrasted helical imaging was performed from above the diaphragms through the symphysis as a renal stone protocol. Multiplanar reformations are available. IV CONTRAST: No IV contrast was administered. GI CONTRAST: No oral contrast was administered. DLP: 1036 mGy-cm FINDINGS: LOWER CHEST: The lung bases are clear. LIVER: Pneumobilia is again present, presumably secondary to prior cholecystectomy. There are no gross masses or intrahepatic biliary ductal dilatation noted. BILIARY TREE: The common bile duct is is dilated, presumably related to prior cholecystectomy. GALLBLADDER: The gallbladder is surgically absent, surgical clips are seen within the gallbladder fossa, PANCREAS: The pancreas is unremarkable. The pancreatic duct is normal in caliber. SPLEEN: The spleen is normal in size and there are no parenchymal abnormalities. ADRENALS: The right adrenal gland is unremarkable. The left adrenal gland is unremarkable. KIDNEYS: Water density cyst is again identified in the right kidney, measuring 6.3 x 4.3 cm, not significantly changed from previous exam. Nonobstructing stones are visible in the right renal collecting system. The right kidney is hydronephrotic without significant perinephric fat stranding. The right ureter is dilated for its entire length until it is obstructed by a 5 mm stone at the ureterovesicular junction. At least 3 more stones are visible slightly proximal to this in the distal right ureter, measuring up to 4 mm in diameter. There is no evidence of left renal or ureteral calculi. There is no evidence of left- sided hydronephrosis or hydroureter. The left renal contours are unremarkable. BOWEL: The visualized portion of the esophagus is unremarkable. The stomach is unremarkable. The small bowel is normal in caliber and there is no evidence of masses or obstruction. The colon is normal in caliber. There are no colonic masses. There is diverticuli present throughout the colon without wall thickening or pericolonic fat stranding or other CT evidence of diverticulitis. APPENDIX: The appendix is not seen but there is no secondary evidence to suggest appendicitis. PELVIS: There are no pelvic mass. The urinary bladder is normal. There has been a hysterectomy. PERITONEUM: There is no evidence for free intraperitoneal fluid or air. LYMPH NODES: There is no evidence of mesenteric, retroperitoneal, or inguinal lymphadenopathy. VASCULATURE: The abdominal aorta is normal in caliber. MUSCULOSKELETAL: There is degenerative disc disease at L5-S1 with posterior spurring. Intervertebral discs are not well visualized on this exam, but possible disc bulges are noted at multiple lumbar levels. IMPRESSION: 1. 5 mm stone is obstructing the distal right ureter at the ureterovesicular junction, with at least 3 additional stones seen in the right ureter just proximal to the ureterovesicular junction, measuring up to 4 mm in diameter. 2. Several nonobstructing stones are visible in the right renal collecting system. 3. Note is made of a large right renal cyst, which appears stable. 4. Colonic diverticulosis is present without CT evidence of diverticulitis. 5. Pneumobilia is presumably secondary to previous cholecystectomy and is not significantly changed from previous examination. 6. Degenerative disc changes are suspected at multiple lumbar levels as described. SL: 82 07/20/2018 [facility] Breast Mammo Scrn MANN incl CAD MA BILATERAL DIGITAL SCREENING MAMMOGRAM WITH CAD: 11/24/2017 CLINICAL: Z12.31 Encounter For Screening Mammogram For Malignant Neoplasm Of Breast/Z12.31 Encounter For Screening Mammogram For Malignant Neoplasm Of Breast. Current study was evaluated with a Computer Aided Detection (CAD) system. COMPARISON:Comparison is made to exams dated: 05/18/2015 mammogram, 04/07/2014 mammogram, and 04/06/2013 mammogram - [facility]. TECHNIQUE: Mammographic views were obtained using digital acquisition. Current study was also evaluated with a Computer Aided Detection (CAD) system. FINDINGS: There are scattered fibroglandular densities in both breasts. Multiple bilateral asymmetries are stable when accounting for differences in positioning and technique. There are benign appearing scattered calcifications in both breasts. No significant masses, calcifications, or other findings are seen in either breast. There has been no significant interval change. IMPRESSION: BENIGN RECOMMENDATION:There is no mammographic evidence of malignancy. A 1 year screening mammogram is recommended.(11/25/2018) This exam was interpreted at [id number] for SAMEER Valadez, SL 15. Professional services are provided by the [facility]. Jayjay Moreno M.D., cm/penrad:11/27/2017 08:35:05 Parking Enforcement Manager(s): RT Shirley(R)(M), [facility] letter sent: BI-RADS 1/2 Mammogram BI-RADS: 2 Benign 11/24/2017 SAMEER YUVAL Valadez Renal Stone CT Exam: CT scan of the abdomen and pelvis without contrast. Reason for Exam: N20.0 Calculus of kidney;N28.1 Cyst of kidney, acquired - Comparison Exam: CT scan 04/11/2016 and 04/09/2015 Technique: Multiple axial images were obtained of the abdomen and pelvis. 5 mm slices were acquired without injection of intravenous contrast. Reformatted sagittal and coronal images were obtained for additional diagnostic information. Total exam YKS=227 mGy-cm. This exam was performed according to our departmental dose-optimization program, which includes automated exposure control, adjustment of the MA and/or KV according to patient size and/or use of iterative reconstruction technique. Discussion: Visualized portions of the lung bases are unremarkable. Note that this exam is suboptimal for evaluation of the abdominal and pelvic viscera secondary to lack of intravenous contrast. Moderate amount of pneumobilia is seen. Patient is status post cholecystectomy. Liver is unremarkable for technique. Stomach is unremarkable. Pancreas, adrenal glands, and spleen are within normal limits. Cyst seen within the right kidney measures 6.8 x 4.6 cm (previously 6 cm). Stable 7 mm calcified stone seen within the inferior pole of the right kidney. Left kidney is unremarkable for technique. No dilated loops of bowel. The appendix is not definitively seen. However, there is no ancillary evidence to suggest appendicitis. Scattered diverticuli seen within the large bowel, without evidence to suggest acute diverticulitis. Uterus is not identified. Correlate with surgical history. No appreciable lymphadenopathy. No acute bony abnormality is appreciated. No suspicious osteoblastic or osteolytic lesions. No evidence seen for abdominal aortic aneurysm. Impression: 1. Cyst seen within the right kidney measures 6.8 x 4.6 cm (previously 6 cm). Stable 7 mm calcified stone seen within the inferior pole of the right kidney. 07/28/2017 YUVAL Valadez Knee 1-2 Views unilateral DX Clinical Indication: Arthritis - Assess Implant Position. Comparison: None. FINDINGS: The AP and lateral views of the knee shows that the patient is status post cemented three component total knee arthroplasty with expected alignment. There are no fractures or dislocations. Some gas and soft tissue swelling is noted related to the recent surgery. The exam is otherwise limited. IMPRESSION: 1. Postsurgical changes of the right knee, as noted above. SL: [id number] 04/24/2017 [facility] Chest 2 views DX Clinical Indication: Coughing - preop exam Comparison: 06/17/2016 FINDINGS: PA and lateral views of the chest are performed. Heart size is upper limits of normal, stable. Mediastinal contours are unremarkable. Lungs are clear without infiltrate or mass. No pleural effusion or pneumothorax. No acute osseous abnormality. Cervical spine fusion hardware is noted. IMPRESSION: 1. No radiographic evidence for acute process in the chest. SL: [id number] 04/06/2017 [facility] Chest 2 views DX EXAM: Chest 2 views DX HISTORY: J20.8 Acute bronchitis due to other specified organisms COMPARISON: None The heart size is normal and the lungs are clear. There is no pleural effusion or pneumothorax. Mild discogenic degenerative changes are noted. IMPRESSION: No acute abnormality. 06/17/2016 YUVAL Valadez Renal Stone CT EXAM: Renal Stone CT HISTORY: N20.0 Calculus of kidney COMPARISON: 04/09/2015 TECHNIQUE: Multiple computerized axial tomographic images were obtained of the abdomen and pelvis from the superior pole of the kidneys through the bladder base without IV or enteric contrast as per renal calculus protocol. DLP 570. FINDINGS: The lung bases are clear. No ureteral stone is seen. There is a 6 cm right renal cyst which is stable, along with small calcifications in the right collecting system measuring up to 7 mm. Limited evaluation of the visualized liver, spleen, adrenal glands and pancreas is grossly unremarkable, though not considered diagnostic quality due to specialized protocol. The gallbladder is absent. There is gas again noted in the biliary tree. The bowel is nondilated. No abdominal/pelvic fluid is seen. The bones show no acute or aggressive abnormality. IMPRESSION: There is a 6 cm right renal cyst and small right renal stones. 04/11/2016 YUVAL Valadez Breast Limited Uni US - BREAST LIMITED UNI US/L ULTRASOUND OF LEFT BREAST: 05/18/2015 CLINICAL: N64.4 Mastodynia. Comparison is made to exams dated: 05/18/2015 mammogram, 04/07/2014 mammogram, 04/06/2013 mammogram, 03/13/2012 mammogram and 02/04/2011 mammogram - [facility]. Color flow and real-time ultrasound of the left breast were performed on the areas of interest. No suspicious sonographic findings identified. No sonographic correlate is identified for the patient's breast pain. IMPRESSION: BENIGN Clinical management of the patient's pain is recommended. There is no sonographic evidence of malignancy. A 1 year screening mammogram is recommended. Jayjay Moreno M.D. cm/:05/18/2015 16:13:13 Parking Enforcement Manager: Erum Keen, [facility] This exam was dictated and interpreted by [id number] for Allyson. letter sent: Normal exam Ultrasound BI-RADS: 2 Benign 05/18/2015 YUVAL Valadez Digital Mammo DX [facility] [place] - DIGITAL MAMMO DX [facility] [place] BILATERAL DIGITAL DIAGNOSTIC MAMMOGRAM WITH CAD: 05/18/2015 CLINICAL: N64.4 Mastodynia. Current study was evaluated with a Computer Aided Detection (CAD) system. Comparison is made to exams dated: 04/07/2014 mammogram, 04/06/2013 mammogram, 03/13/2012 mammogram, 02/04/2011 mammogram - [facility], 12/29/2008 mammogram and 01/26/2007 mammogram - [facility]. There are scattered fibroglandular densities in both breasts. There are benign scattered calcifications in both breasts. No significant masses, calcifications, or significant changes are seen in either breast. IMPRESSION: BENIGN There is no mammographic abnormality seen in the left breast to correspond with the pain, however further workup with ultrasound is recommended. There is no mammographic evidence of malignancy. Jayjay Moreno M.D. cm/:05/18/2015 16:06:19 Parking Enforcement Manager: Mayelin BENNETT(Gomez)(M), [facility] This exam was dictated and interpreted by [id number] for SAMEER Valadez. Mammogram BI-RADS: 2 Benign 05/18/2015 YUVAL Valadez Renal Stone CT Exam: CT scan of the abdomen and pelvis without contrast. Reason for Exam: Calculus of the kidney Comparison Exam: CT scan 02/04/2014 Technique: Multiple axial images were obtained of the abdomen and pelvis. 3.75mm slices were acquired without injection of intravenous contrast. Reformatted sagittal and coronal images were obtained for additional diagnostic information. Total exam FAG=876 mGy-cm. Discussion: Visualized portions of the lung bases are unremarkable. Note that this exam is suboptimal for evaluation of the abdominal and pelvic viscera secondary to lack of intravenous contrast. The patient is status post cholecystectomy. Chronic appearing pneumobilia is noted. The pancreas, spleen, and adrenal glands are within normal limits. Stable appearing cyst seen within the interpolar region of the right kidney. 8mm calcite stones seen within the inferior pole of the right kidney. This is a similar appearance to previous exam. The left kidney is unremarkable. No hydronephrosis or hydroureter. No calcified stones seen within the ureters or the bladder the no dilated loops of bowel. No appreciable lymphadenopathy. Scattered diverticuli seen within the large bowel, without evidence to suggest acute diverticulitis. Note is made of a duodenal diverticulum originating from the third portion of the duodenum measuring 3.7 cm (coronal image 68). No acute bony abnormality is appreciated. No suspicious osteoblastic or osteolytic lesions. No evidence seen for abdominal aortic aneurysm. Impression: 1. Stable appearing right-sided nephrolithiasis as well as right renal cyst. Chronic appearing pneumobilia. 04/09/2015 [facility] Foot series DX Exam: Left foot x-ray, 3 views Reason for Exam: Pain Comparison Exam: None Discussion: No acute fracture lines identified. Postoperative changes seen within the head of the first metatarsal bone. The tibial sesamoid bone seen at the level of the first metatarsal head appears bipartite. This is likely a chronic finding. Impression: 1. No acute fracture lines identified. 03/09/2015 [facility] Spine cervical 2 or 3 view DX HISTORY: Neuritis TECHNIQUE: AP and lateral views of the cervical spine COMPARISON: None FINDINGS: No acute fracture or dislocation. No suspicious osseous lesion. Normal alignment and vertebral body heights are well maintained. Prevertebral soft tissues are within normal limits. Multilevel degenerative disc disease is seen, with the space narrowing and ossify formation worst at C4-C5. Subtle grade 1 anterolisthesis of C3 upon C4 measuring 1 mm. The odontoid process and lateral masses of C1 are normal. IMPRESSION: 1. Multilevel degenerative changes, worst at C4-C5. 2. Grade 1 anterolisthesis of C3 upon C4. 08/14/2014 [facility] Spine lumbar 2 or 3 views DX HISTORY: Disc degeneration TECHNIQUE: AP views of the lumbar spine COMPARISON: None FINDINGS: No acute fracture or dislocation. No suspicious osseous lesion. Normal lumbar lordosis and vertebral body heights are well maintained. Mild multilevel space narrowing and facet arthropathy, worst at L5-S1. IMPRESSION: Mild multilevel degenerative changes, worst at L5-S1. 08/14/[facility] Digital Mammo Screening [facility] [place] - DIGITAL MAMMO SCREENING MANN MA BILATERAL DIGITAL SCREENING MAMMOGRAM WITH CAD: 04/07/2014 CLINICAL: Routine. Current study was evaluated with a Computer Aided Detection (CAD) system. Comparison is made to exam dated: 12/29/2008 mammogram - [facility]. The tissue of both breasts is heterogeneously dense, which could obscure detection of small masses. No significant masses, calcifications, or other findings are seen in either breast. There has been no significant interval change. IMPRESSION: NEGATIVE There is no mammographic evidence of malignancy. A screening mammogram in one year is recommended. Dr. Husam Morales M.D. eoc/penrad:04/07/2014 17:03:20 Parking Enforcement Manager: Verito Navas RT(R)(M), [facility] This exam was dictated and interpreted by [id number] for SAMEER Olivarez. letter sent: Normal exam Mammogram BI-RADS: 1 Negative 04/07/2014 YUVAL Valadez Abdomen AP view HISTORY: Nephrolithiasis TECHNIQUE: KUB COMPARISON: 02/28/2014 FINDINGS: Overlying bowel creates artifact which limits evaluation for nephrolithiasis. Within the limits of the study, there is overall stable appearance to the previously seen 6 mm calculus projecting in the right inferior renal pole. A punctate 4 mm calculus projecting over the right midpole is also stable. No left-sided or ureteral calculi seen. Moderate stool burden is seen within the large bowel. No evidence of free air under the diaphragm. No acute osseous abnormalities. IMPRESSION: Stable right-sided nephrolithiasis. 03/12/2014 YUVAL Valadez Abdomen AP view NAME: JAYDA REILLY : 1950 SEX: F Ordering Physician: Suleiman Browning Abdomen 1 view : Feb 28, 2014 06:19:00 AM. CLINICAL INDICATION: Flank Pain. Comparison Examination: None. FINDINGS: 6 mm calculus is seen in the right inferior kidney. 4 mm calcification projects over the right mid to inferior kidney that may represent a renal calculus or normal rib end. Multiple small calcifications in the pelvis may represent phleboliths but cannot exclude distal ureteral calcification in the appropriate clinical setting. The patient is status post cholecystectomy. Moderate amount of stool seen throughout the colon. Nonpathologic bowel gas pattern without evidence for bowel obstruction. SL: 14 02/28/2014 [facility] Consultation Notes No Data Provided for This Section Discharge Summaries No Data Provided for This Section History and Physicals No Data Provided for This Section Vital Signs Vital Sign Value Date Comments Source Temperature Oral (F) 97.7 F 07/20/2018 [facility] Systolic (mm Hg) 117 07/20/2018 [facility] Diastolic (mm Hg) 71 07/20/2018 [facility] Heart Rate 77 07/20/2018 [facility] Respitory Rate 18 07/20/2018 [facility] Systolic (mm Hg) 132 07/20/2018 [facility] Diastolic (mm Hg) 76 07/20/2018 [facility] Respitory Rate 23 07/20/2018 [facility] Respitory Rate 20 07/20/2018 [facility] Systolic (mm Hg) 124 07/20/2018 [facility] Diastolic (mm Hg) 71 07/20/2018 [facility] BMI Calculated 27.5 07/20/2018 [facility] Height 167.64 cm 07/20/2018 [facility] Weight 77.273 07/20/2018 [facility] Heart Rate 76 07/20/2018 [facility] Temperature Oral (F) 98.0 F 07/20/2018 [facility] Heart Rate 84 04/25/2017 [facility] Systolic (mm Hg) 103 04/25/2017 [facility] Diastolic (mm Hg) 66 04/25/2017 [facility] Respitory Rate 16 04/25/2017 [facility] Temperature Oral (F) 98.0 F 04/25/2017 [facility] Systolic (mm Hg) 108 04/25/2017 [facility] Diastolic (mm Hg) 59 04/25/2017 [facility] Temperature Oral (F) 99.1 F 04/25/2017 [facility] Respitory Rate 16 04/25/2017 [facility] Heart Rate 84 04/25/2017 [facility] Respitory Rate 16 04/25/2017 [facility] Heart Rate 75 04/25/2017 [facility] Systolic (mm Hg) 102 04/25/2017 [facility] Diastolic (mm Hg) 58 04/25/2017 [facility] Temperature Oral (F) 97.5 F 04/25/2017 [facility] Weight 70.057 04/06/2017 [facility] BMI Calculated 26.51 04/06/2017 [facility] Height 162.56 cm 04/06/2017 [facility] Diastolic (mm Hg) 59 02/28/2014 [facility] Systolic (mm Hg) 90 02/28/2014 [facility] Diastolic (mm Hg) 70 02/28/2014 [facility] Systolic (mm Hg) 105 02/28/2014 [facility] Respitory Rate 20 02/28/2014 [facility] Respitory Rate 14 02/28/2014 [facility] Diastolic (mm Hg) 72 02/28/2014 [facility] Systolic (mm Hg) 105 02/28/2014 [facility] Respitory Rate 15 02/28/2014 [facility] Heart Rate 68 02/28/2014 [facility] Temperature Oral (F) 98.3 F 02/21/2014 [facility] Heart Rate 55 02/21/2014 [facility] BMI Calculated 26.32 02/21/2014 [facility] Height 162.56 cm 02/21/2014 [facility] Weight 69.545 02/21/2014 [facility] Encounters Location Location Details Encounter Type Encounter Number Reason For Visit Attending Provider ADM Date DC Date Status Source [facility] [id number] Branden Joel 12/19/2013 12/20/2013 [facility] [id number] Suleiman Browning 01/27/2014 01/28/2014 [facility] [place] [id number] [facility] Browning 02/04/2014 02/05/2014 [facility] [place] OBS Day Surgery [id number] [facility] Sonya 02/28/2014 02/28/2014 [facility] [id number] [facility] Browning 03/12/2014 03/13/2014 [facility] [place] [id number] Branden Joel 04/07/2014 04/08/2014 [facility] [place] [id number] Branden Joel 08/14/2014 08/15/2014 [facility] [place] [id number] Branden Joel 03/09/2015 03/10/2015 [facility] [place] [facility] [id number] [facility] Sonya 04/09/2015 04/10/2015 [facility] [place] [facility] [id number] Tobi Lirinao 05/18/2015 05/19/2015 [facility] [place] [facility] [id number] Suleiman Sonya 04/11/2016 04/12/2016 [facility] [place] [facility] [id number] Branden Maldonado 06/17/2016 06/18/2016 [facility] [place] Inpatient [id number] Magdi Torres 04/24/2017 04/25/2017 [facility] [id number] Magdi Torres 04/26/2017 05/26/2017 [facility] [id number] Magdi Torres 05/31/2017 06/30/2017 [facility] [place] [id number] Suleiman Browning 07/28/2017 07/29/2017 [facility] [place] [facility] [id number] Branden Joel 11/24/2017 11/25/2017 [facility] [place] [facility] Emergency [id number] Cat Browning 07/20/2018 07/20/2018 [facility] Outpatient [id number] SULEIMAN BROWNING 07/23/2018 [facility] Outpatient [id number] [facility] 07/26/2018 [facility] Outpatient [id number] Suleiman Browning 07/26/2018 07/27/2018 [facility] Outpatient [id number] SULEIMAN BROWNING 08/23/2018 [facility] Procedures Procedure Code Date Perfomer Comments Source Eddi-Thelma operation for hiatal hernia repair with esophagogastroplasty [id number] [facility] Partial hysterectomy [id number] [facility] Eddi-Thelma operation for hiatal hernia repair with esophagogastroplasty [id number] [facility] [place] Partial hysterectomy [id number] [facility] Cervical discectomy [id number] [facility] [place] Cholecystectomy [id number] [facility] [place] Hernia repair [id number] [facility] Cervical discectomy [id number] [facility] [place] Cholecyst[facility] [id number] [facility] [place] Eddi-Thelma operation for hiatal hernia repair with esophagogastroplasty [id number] [facility] [place] Hernia repair [id number] [facility] [place] Partial hysterectomy [id number] [facility] [place] Cervical discectomy [id number] [facility] Chole[facility] [id number] [facility] Hernia repair [id number] [facility] Assessment and Plan Assessment and Plan Date Source Extracted from:Title: Clinical Document Author: Magdi Torres MD Date: 04/25/17 Admit Date: 04/24/2017 Discharge Date: 04/25/2017 Reason for Hospitalization: s/p Right ASHLI Patient was admitted to the floor s/p above. Pt tolerated the surgery well and vital signs were stable in the post operative period. Pt recieved 24 hr abx prohlyaxis, DVT prophlaxis was started within 23 hrs of surgery, and was cleared for d/c home by PT on POD# 1. Discharge Instructions WBAT no ROM restrictions f/u Dr. Magdi Torres on 05/17/2017 Discharge Medications Lovenox 40 mg SubQ Q24hr for 10 days post-op Percocet 10/325 1-2 tab PO Q4-6Hr PRN Pain Continue all home medcations Contact Dr[facility] if: Fever > 101.5 Increasing pain Redness along incision purulent drainage Extracted from:Title: Clinical Document Author: Magdi Torres MD Date: 04/24/17 TKA Operative Note Date: 04/24/2017 Location: [facility] Attending: Magdi Torres MD Pre-op dx: left knee osteoarthritis Post-op dx: left knee osteoarthritis Procedure: left total knee arthroplasty Anesthesiologist: Dr. Royce Garg Anesthesia: General, Dilaudid [employer] Counter Clerk: Gonzalez Rodriguez T-time: 90 min EBL: minimal UOP: no tirado IVF: see anesthesia note Transfusion: none required Implants: [employer]hew Femur: 4N, oxinium, CR, Legion Tibia: 3, Deonna 2 Polyethylene: 9, dished, xlink Patella: 29 mm Cement: [place] Simplex Abx Cement, 2 packs Resections: Femur: alignment: 5 deg valgus level: primary Tibia: slope: 4 degree Level: 2 mm, medial Clinical Indications: Patient is a 66 yo female with a diagnosis of knee osteoarthritis status post an extensive conservative medical management program including physical therapy with home exercise program, injections, and anti-inflammatories. Patient has exhausted all non-operative management options but has persistent pain and disability from the arthritis X-rays demonstrate end stage joint space narrowing with bone on bone articulation involving the medial, lateral, and patellofemoral compartments of the knee. Intraoperative evaluation showed complete destruction of the cartilage surfaces in the medial, lateral, and patellofemoral compartments of the knee. Patient understands the risks, benefits, rational, and rehabilitation process inherent with a total knee arthroplasty. Patient expressed understanding that risks include but not limited to bleeding, pain, infection, damage to nearby structures: vessels, tendons, nerves and ligaments, hardware failure, loosening, fracture, need for revision surgery, blood clots in the legs and lungs, stroke, heart attack, and . The patient agreed and gave consent to surgery as indicated. Patient also understands the risks and benefits of blood transfusions. Risks including possible transmission of virus or bacteria, and transfusion reactions. Patient understood these risks and gave consent for transfusion as indicated. Procedure Note: Positioning: Patient brought into the OR and placed supine on the OR table. After successful an anesthetic was applied, a tirado catheter was placed. The Right lower extremity was then prepped and draped in the standard fashion with a non-sterile tourniquet on the proximal thigh. A surgical time-out was completed, antibiotics, surgical site, and allergies were confirmed. The operative extremity was then exsanguinated with the esmarch and the tourniquet was inflated. Approach: An anterior incision was centered over the knee with a 10 blade scalpel, and dissection was taken down to the retinacular layer. A medial parapatellar arthrotomy was completed in the standard fashion. We then resected the anterior distal femur synovium, infrapatellar fat pad, anterior horn of the lateral meniscus, and anterior cruciate ligament. A medial proximal tibia release was completed in the standard fashion. The patella was everted, the patella resection was completed in the standard fashion at the level of the lateral facet. The patella was sized then drilled in the standard fashion. Femur: The intramedullary canal of the femur and tibia was accessed with drill and Charnley awl. A distal femoral cutting block was placed with the intramedullary guide and the distal femoral resection was completed with the oscillating saw. The femur was sized and the corresponding 4 in 1 cutting block was placed. The anterior, posterior, and chamfer resections were completed. The bone cuts were refined with rongeur and osteotomes, Tibia: The tibia was subluxed anteriorly and the posterior cruciate ligament was partially released. Retractors were placed to protect the collateral ligaments. The intramedullary cutting block was placed and stabilized. The proximal tibial resection was completed with the oscillating saw and refined with tibia rasp. The tibia was sized then broached in the standard fashion. The posterior compartment was accessed. We resected the menisci, posterior and notch osteophytes. Trialing/Balancing: The knee was trialed with a 9 mm insert. The construct was able to achieve full extension, 135 degrees of flexion, with excellent patellar tracking, The construct was stable to varus and valgus stress with physiologic laxity Cementing: The bone surfaces were irrigated with 1 liter of normal saline fluid then dried. The posterior lateral corner was coagulated and bone grafted the tibia canal. The bone cement was applied under finger pressurization. The tibia component was impacted, excess bone cement was removed circumferenecially. The femur component was then impacted and excess bone cement was removed in flexion and extension. Lastly, the patella was everted and cemented into place. The liner was the implacted in the standard fashion. The entire operative field was irrigated with 2 liters of normal saline. Closure: The arthrotomy was closed with #1 ethibond sutures. Scarpas fascia was closed with inverted O vicryls. The skin was closed with inverted subcutaneous 2-O vicryls and a running 4-O monocryl. The wound was dressed with dermabond, adaptic, 4x4s, abd pads, and an mary wrap. Tourniquet was released after the dressing was placed and tranexemic acid was given during the closure. The entire procedure was completed with the attending surgeon. Laminar air flow body exhaust suits were worn for the entire procedure. A heel sprayer first was utilized for the entire procedure. The heel sprayer first aided in positioning, retraction, implant sizing/implementation, and closure. The heel sprayer first decreased surgical time and therefore mauri-operative morbidity. Post-op Dispo: Patient will be admitted to the floor, receive 24 hours of intravenous antibiotics, and DVT prophylaxis. The patient can weight bear as tolerated with no range of motion requirements. Extracted from:Title: Clinical Document Author: Magdi Torres MD Date: 04/23/17 CHIEF COMPLAINT: Right knee pain. HISTORY OF PRESENT ILLNESS: The patient is a 66-year-old female with isolated right knee pain in the anterior medial aspect of the right knee up to 7/10 severity, going on for the past six months, dramatic increase over the past three months, related to overuse, alleviated by rest. Aggravated by standing, squatting, kneeling, and walking, prolonged ambulation, going up and down stairs. The patient is previously treated with physical therapy oral and topical antiinflammatories, or steroid injections. PAST MEDICAL HISTORY: Denies. PAST SURGICAL HISTORY: Hiatal hernia, gallbladder, and hysterectomy. ALLERGIES: NO KNOWN DRUG ALLERGIES. CURRENT MEDICATIONS: Lovastatin, citalopram, and Carafate. SOCIAL HISTORY: The patient denies smoking, alcohol, and drug use. FAMILY HISTORY: Positive for diabetes, coronary artery disease, hypertension, arthritis, and stroke. REVIEW OF SYSTEMS: My 12-system review of systems questionnaire is completed by the patient and reviewed by myself. Systems evaluated include general, skin, HEENT, psychiatric, pulmonary, , GI, musculoskeletal, lymphatics, endocrine, cardiovascular, and neurologic. Pertinent positives are limited to musculoskeletal. Please see HPI for further details. PHYSICAL EXAMINATION: GENERAL: The patient demonstrates mild obese body habitus, in no acute distress. PSYCHIATRIC: Alert and oriented x3. Demonstrates proper mood and affect. ABDOMEN: Soft, nontender, and nondistended. EYES: Sclerae are normal. SKIN: No evidence of soft tissue swelling, ecchymosis, or bruising. CARDIOVASCULAR: A 1+ DP pulse bilaterally. NEUROLOGIC: A 5/5 motor strength in the bilateral hip flexors, quads, hamstrings, TA, EHL, and GS. Light touch intact in L2 through S1 dermatomal distribution and 1+ DTRs bilaterally. EXTREMITIES: The patient's right knee demonstrates pain on passive range of motion, palpable crepitus, antalgic gait, and joint line tenderness to palpation. X-rays demonstrates [id number] articulation in the medial compartment, periarticular osteophytes, and subchondral sclerosis as well as varus malalignment. Previous treatments include Voltaren gel, oral and topical antiinflammatories, steroid injection, and physical therapy. ASSESSMENT: The patient has right knee osteoarthritis, ICD-10 code is M17.11. PLAN: Right total knee arthroplasty. Tranexamic acid, Toradol, and steroid taper. Lovenox for DVT prophylaxis. Ancef and vancomycin for antibiotic prophylaxis. [employer] instrumentation. Risks and benefits discussed at length with the patient, risks of surgery including bleeding, pain, infection, damage to nearby structures, vessel, tendons, nerves, hardware failure or loosening, need for further surgery, possibility of blood clots in legs or lungs, stroke, heart attack, and . 04/25/2017 [facility] Plan of Care No Data Provided for This Section Social History Social History Date Source Social History TypeResponse Employment/School Status: Retired. Alcohol Never Smoking Status Former smoker; Exposure to Tobacco Smoke None; Cigarette Smoking Last 365 Days No; Reg Smoking Cessation Counseling No entered on: 04/24/17 04/06/2017 YUVAL Valadez Social History TypeResponse Employment/School Status: Retired. Alcohol Never Smoking Status Former smoker; Exposure to Tobacco Smoke None; Cigarette Smoking Last 365 Days No; Reg Smoking Cessation Counseling No entered on: 07/26/18 04/06/2017 [place] Social History TypeResponse Employment/School Status: Retired. Alcohol Never Smoking Status Former smoker; Exposure to Tobacco Smoke None; Cigarette Smoking Last 365 Days No; Reg Smoking Cessation Counseling No entered on: 04/24/17 04/06/2017 BRITTNY Valadez Family History No Data Provided for This Section Advance Directives No Data Provided for This Section Functional Status No Data Provided for This Section
--- OUTSIDE RECORDS SUMMARY | 2019-01-17 06:37 | XMS REPORT | Summary of Care ---
Author Author [facility] Organization [facility] Address Unknown Phone Unavailable Encounter IDALMIS Laboy(JUDY) [id number] Date(s): 04/24/17 - 04/25/17 [facility] [address] [place] [address]- Final: Unilateral primary osteoarthritis, right knee Discharge Disposition: Home or Self Care Attending Physician: Magdi Torres MD Admitting Physician: Magdi Torres MD Referring Physician: Magdi Torres MD Vital Signs 1 2 3 Most recent to oldest [Reference Range]: 162.56 cm (04/06/17 8:13 AM) Height 98.0 DegF (04/25/17 11:11 AM) 99.1 DegF (04/25/17 8:50 AM) 97.5 DegF (04/25/17 4:00 AM) Temperature Oral [96.4-99.1 DegF] 103/66 mmHg (04/25/17 11:11 AM) 108/59 mmHg (04/25/17 8:50 AM) 102/58 mmHg (04/25/17 6:12 AM) Blood Pressure [90-140/60-90 mmHg] 16 BRMIN (04/25/17 11:11 AM) 16 BRMIN (04/25/17 8:50 AM) 16 BRMIN (04/25/17 7:07 AM) Respiratory Rate [14-20 BRMIN] 84 bpm (04/25/17 11:11 AM) 84 bpm (04/25/17 8:50 AM) 75 bpm (04/25/17 6:12 AM) Peripheral Pulse Rate [60-100 bpm] 70.057 kg (04/06/17 8:13 AM) Weight 26.51 m2 (04/06/17 8:13 AM) Body Mass Index Problem List Condition Effective Dates Status Health Status Informant Acid Active reflux(Confirmed) Anxiety(Confirmed) Resolved HTN - Resolved Hypertension(Confirm ed) Kidney Active stone(Confirmed) Sleep Active apnea(Confirmed) Allergies, Adverse Reactions, Alerts Substance Reaction Severity Status NKDA Active Medications ANES acetaminophen 1,000 mg, Route: PO, Drug form: TAB, ONCE, Dosing Weight 70.057, kg, PRN Pain Sc ore 1-3, Start date: 04/24/17 10:05:00 FINANCIAL PROFESSIONAL, Duration: 1 doses or times, Stop esau e: Limited # of times Start Date: 04/24/17 Stop Date: 04/24/17 Status: Discontinued ANES albuterol 0.083% inhalation solution 2.49 mg, Route: NEB, Q20Min, Dosing Weight 70.057, kg, PRN Wheezing, Priority: S TAT, Start date: 04/24/17 10:05:00 FINANCIAL PROFESSIONAL, Duration: 30 day, Stop date: 05/24/17 10 :04:00 FINANCIAL PROFESSIONAL Start Date: 04/24/17 Stop Date: 04/24/17 Status: Discontinued ANES diphenhydrAMINE 12.5 mg, Route: IVP, Drug form: INJ, Q6H, Dosing Weight 70.057, kg, PRN Itching, Start date: 04/24/17 10:05:00 FINANCIAL PROFESSIONAL, Duration: 30 day, Stop date: 05/24/17 10:04: 00 FINANCIAL PROFESSIONAL Start Date: 04/24/17 Stop Date: 04/24/17 Status: Discontinued ANES fentaNYL 50 microgram, Route: IVP, Q5Min, Dosing Weight 70.057, kg, PRN Pain Score 7-10, Priority: Routine, Start date: 04/24/17 10:05:00 FINANCIAL PROFESSIONAL, Duration: 2 doses or times , Stop date: Limited # of times Start Date: 04/24/17 Stop Date: 04/24/17 Status: Discontinued ANES fentaNYL 25 microgram, Route: IVP, Q5Min, Dosing Weight 70.057, kg, PRN Pain Score 4-6, P riority: Routine, Start date: 04/24/17 10:05:00 FINANCIAL PROFESSIONAL, Duration: 4 doses or times, Stop date: Limited # of times Start Date: 04/24/17 Stop Date: 04/24/17 Status: Discontinued ANES flumazenil 0.2 mg, Route: IVP, PRN, Dosing Weight 70.057, kg, PRN Benzodiazepine Reversal, Initial dose, Start date: 04/24/17 10:05:00 FINANCIAL PROFESSIONAL, Duration: 30 day, Stop date: 10:04:00 FINANCIAL PROFESSIONAL Start Date: 04/24/17 Stop Date: 04/24/17 Status: Discontinued ANES hydrALAZINE 10 mg, Route: IVP, Q20Min, Dosing Weight 70.057, kg, PRN Elevated BP, Start date : 04/24/17 10:05:00 FINANCIAL PROFESSIONAL, Duration: 2 doses or times, Stop date: Limited # of paris es Start Date: 04/24/17 Stop Date: 04/24/17 Status: Discontinued ANES HYDROmorphone 0.5 mg, Route: IVP, Q5Min, Dosing Weight 70.057, kg, PRN Pain Score 7-10, Start date: 04/24/17 10:05:00 FINANCIAL PROFESSIONAL, Duration: 4 doses or times, Stop date: Limited # of times Start Date: 04/24/17 Stop Date: 04/24/17 Status: Discontinued ANES ketOROLAC 30 mg, Route: IVP, ONCE, Dosing Weight 70.057, kg, Start date: 04/24/17 10:05:00 FINANCIAL PROFESSIONAL, Duration: 1 doses or times, Stop date: 04/24/17 10:05:00 FINANCIAL PROFESSIONAL Start Date: 04/24/17 Stop Date: 04/24/17 Status: Discontinued ANES labetalol 10 mg, Route: IVP, Q5Min, Dosing Weight 70.057, kg, PRN Elevated BP, Start date: 04/24/17 10:05:00 FINANCIAL PROFESSIONAL, Duration: 5 doses or times, Stop date: Limited # of times Start Date: 04/24/17 Stop Date: 04/24/17 Status: Discontinued ANES naloxone 0.4 mg, Route: IVP, Q2MIN, Dosing Weight 70.057, kg, PRN Narcotic Reversal, Star t date: 04/24/17 10:05:00 FINANCIAL PROFESSIONAL, Duration: 8 doses or times, Stop date: Limited # of times Start Date: 04/24/17 Stop Date: 04/24/17 Status: Discontinued ANES ondansetron 4 mg, Route: IVP, ONCE, Dosing Weight 70.057, kg, PRN Nausea & Vomiting, Start date: 04/24/17 10:05:00 FINANCIAL PROFESSIONAL Start Date: 04/24/17 Stop Date: 04/24/17 Status: Discontinued ANES oxyCODONE 5 mg, Route: PO, Drug form: TAB, Q4H, Dosing Weight 70.057, kg, PRN Pain Score 4 -6, Start date: 04/24/17 10:05:00 FINANCIAL PROFESSIONAL, Duration: 30 day, Stop date: 05/24/17 10: 04:00 FINANCIAL PROFESSIONAL Start Date: 04/24/17 Stop Date: 04/24/17 Status: Discontinued APAP/butalbital/caffeine 1 tab, Route: PO, Drug Form: TAB, Q6H, PRN Headache 1-3, Start date: 04/24/17 13 :41:00 FINANCIAL PROFESSIONAL, Duration: 30 day, Stop date: 05/24/17 13:40:00 FINANCIAL PROFESSIONAL Notes: (tmhwhxygbdeca-krnlgmgktn-nsgvrihe 325-50-40mg) Do not exceed 4 gm/day o f acetaminophen. (Same as: Esgic, Fioricet) Start Date: 04/24/17 Stop Date: 04/25/17 Status: Discontinued bisacodyl 10 mg, 1 supp, Route: DC, Drug form: SUPP, Daily, Dosing Weight 70.057, kg, PRN Constipation, Start date: 04/24/17 9:31:00 FINANCIAL PROFESSIONAL, Duration: 30 day, Stop date: 12/03 9:30:00 FINANCIAL PROFESSIONAL Notes: (Same As: Dulcolax, Bisco-Lax) Start Date: 04/24/17 Stop Date: 04/25/17 Status: Discontinued calcium carbonate 1,000 mg, 2 tab, Route: PO, Drug form: CHEWTAB, Daily, Dosing Weight 70.057, kg, Start date: 04/25/17 9:00:00 FINANCIAL PROFESSIONAL, Duration: 30 day, Stop date: 05/24/17 9:00:00 FINANCIAL PROFESSIONAL Notes: (Same As: Tums)Calcium Carbonate 500 nz=703 mg elemental calcium Dose=_ mg calcium carbonate ( mg elemental calcium) Start Date: 04/25/17 Stop Date: 04/25/17 Status: Discontinued Carafate 1 gm, 1 tab, Route: PO, Drug form: TAB, Daily, Dosing Weight 70.057, kg, PRN GI Upset, Start date: 04/24/17 12:48:00 FINANCIAL PROFESSIONAL, Duration: 30 day, Stop date: 05/24/17 12:47:00 FINANCIAL PROFESSIONAL Notes: May interfere w/enteral feeds - Take 1 hr before or 2 hr after antacids, dairy pdt, meals & minerals - On empty stomach.For patients unable to swallow tablet, dissolve in 10mL - 30mL of water or juice and stir before giving. (Same As: Carafate) Start Date: 04/24/17 Stop Date: 04/25/17 Status: Discontinued Carafate 1 g oral tablet 1 gm=1 tab, PO, Daily, PRN GI Upset Start Date: 04/06/17 Status: Ordered ceFAZolin 2 gm, 100 mL, Route: IVPB, Drug form: INJ, ONCALL, Dosing Weight 70.057, kg, Sta rt date: 04/24/17 7:00:00 FINANCIAL PROFESSIONAL, Duration: 6 hr, Stop date: 04/24/17 12:59:00 FINANCIAL PROFESSIONAL, ABX Indication: Surgical Prophylaxis Notes: Same as: Ancef Start Date: 04/24/17 Stop Date: 04/25/17 Status: Discontinued ceFAZolin (ANES) (ANES) Route: IV, Drug form: INJ, Start date: 04/24/17 7:43:00 FINANCIAL PROFESSIONAL, Stop date: 04/24/17 8:43:00 FINANCIAL PROFESSIONAL Start Date: 04/24/17 Stop Date: 04/24/17 Status: Completed ceFAZolin (SCIP) 1 gm, 100 mL, Route: IVPB, Drug form: INJ, ABXQ6H, Dosing Weight 70.057, kg, Sta rt date: 04/24/17 13:30:00 FINANCIAL PROFESSIONAL, Duration: 3 doses or times, Stop date: 04/25/17 1:30:00 FINANCIAL PROFESSIONAL, ABX Indication: Surgical Prophylaxis Start Date: 04/24/17 Stop Date: 04/25/17 Status: Completed celecoxib 200 mg, Route: PO, ONCALL, Dosing Weight 70.057, kg, (for CrCl > 90 mL/min), Start date: 04/24/17 7:00:00 FINANCIAL PROFESSIONAL, Duration: 30 day, Stop date: 05/24/17 6:59:00 FINANCIAL PROFESSIONAL Start Date: 04/24/17 Stop Date: 04/24/17 Status: Completed citalopram 20 mg, PO, Daily, 0 Refill(s) Start Date: 04/06/17 Status: Ordered citalopram 20 mg, 2 tab, Route: PO, Drug form: TAB, Daily, Dosing Weight 70.057, kg, Start date: 04/25/17 9:00:00 FINANCIAL PROFESSIONAL, Duration: 30 day, Stop date: 05/24/17 9:00:00 FINANCIAL PROFESSIONAL Start Date: 04/25/17 Stop Date: 04/25/17 Status: Discontinued codeine sulfate 30 mg, 1 tab, Route: PO, Drug form: TAB, Q6H, PRN Headache 1-3, Start date: 12/03 13:44:00 FINANCIAL PROFESSIONAL, Duration: 30 day, Stop date: 05/24/17 13:43:00 FINANCIAL PROFESSIONAL Start Date: 04/24/17 Stop Date: 04/25/17 Status: Discontinued Cyklokapron + sodium chloride 0.9% INJ 100 mL 1,000 mg, 10 mL, Route: IVPB, ONCE, Start date: 04/24/17 15:30:00 FINANCIAL PROFESSIONAL, Stop date : 04/24/17 15:30:00 FINANCIAL PROFESSIONAL Notes: (Same As: Cyklokapron) Start Date: 04/24/17 Stop Date: 04/24/17 Status: Completed dexamethasone 4 mg, 1 mL, Route: IVP, Drug form: INJ, ONCE, Start date: 04/25/17 12:00:00 FINANCIAL PROFESSIONAL, Stop date: 04/25/17 12:00:00 FINANCIAL PROFESSIONAL Notes: Concentration: 4mg/ml Start Date: 04/25/17 Stop Date: 04/25/17 Status: Completed dexamethasone 4 mg, 1 tab, Route: PO, Drug form: TAB, ONCE, Start date: 04/26/17 12:00:00 FINANCIAL PROFESSIONAL, Stop date: 04/26/17 12:00:00 FINANCIAL PROFESSIONAL Notes: Give with food.(Same As: Decadron) Start Date: 04/26/17 Stop Date: 04/25/17 Status: Canceled dexamethasone 2 mg, 0.5 tab, Route: PO, Drug form: TAB, ONCE, Start date: 04/27/17 12:00:00 CS T, Stop date: 04/27/17 12:00:00 FINANCIAL PROFESSIONAL Notes: Give with food.(Same As: Decadron) Start Date: 04/27/17 Stop Date: 04/25/17 Status: Canceled dexamethasone 6 mg, 1.5 mL, Route: IVP, Drug form: INJ, ONCE, Start date: 04/24/17 12:00:00 CS T, Stop date: 04/24/17 12:00:00 FINANCIAL PROFESSIONAL Notes: Concentration: 4mg/ml Start Date: 04/24/17 Stop Date: 04/24/17 Status: Completed dexamethasone 2 mg, Route: PO, ONCE, Dosing Weight 70.057, kg, Start date: 04/24/17 9:31:00 CS T, Stop date: 04/24/17 9:31:00 FINANCIAL PROFESSIONAL Start Date: 04/24/17 Stop Date: 04/24/17 Status: Deleted dexamethasone 2 mg, Route: PO, ONCE, Dosing Weight 70.057, kg, Start date: 04/24/17 9:31:00 CS T, Stop date: 04/24/17 9:31:00 FINANCIAL PROFESSIONAL Start Date: 04/24/17 Stop Date: 04/24/17 Status: Deleted dexamethasone 10 mg, Route: IV, ONCE, Dosing Weight 70.057, kg, Start date: 04/24/17 9:31:[address], Stop date: 04/24/17 9:31:00 FINANCIAL PROFESSIONAL Start Date: 04/24/17 Stop Date: 04/24/17 Status: Deleted dexamethasone 4 mg, Route: PO, ONCE, Dosing Weight 70.057, kg, Start date: 04/24/17 9:31:00 CS T, Stop date: 04/24/17 9:31:00 FINANCIAL PROFESSIONAL Start Date: 04/24/17 Stop Date: 04/24/17 Status: Deleted dexamethasone 4 mg, Route: IV, ONCE, Dosing Weight 70.057, kg, Start date: 04/24/17 9:31:00 CS T, Stop date: 04/24/17 9:31:00 FINANCIAL PROFESSIONAL Start Date: 04/24/17 Stop Date: 04/24/17 Status: Deleted dexamethasone (ANES) Route: IV, Drug form: INJ, ONCE, Stop date: 04/24/17 8:43:00 FINANCIAL PROFESSIONAL Start Date: 04/24/17 Stop Date: 04/24/17 Status: Completed Dilaudid 2 mg, 1 tab, Route: PO, Drug form: TAB, Q3H, Dosing Weight 70.057, kg, PRN Other -See Comment, Start date: 04/24/17 9:31:00 FINANCIAL PROFESSIONAL, Duration: 30 day, Stop date: 9:30:00 FINANCIAL PROFESSIONAL Notes: (Same as: Dilaudid) Start Date: 04/24/17 Stop Date: 04/25/17 Status: Discontinued Dilaudid 1 mg, 0.5 tab, Route: PO, Drug form: TAB, Q3H, Dosing Weight 70.057, kg, PRN Oth er -See Comment, Start date: 04/24/17 9:31:00 FINANCIAL PROFESSIONAL, Duration: 30 day, Stop date: 05/24/17 9:30:00 FINANCIAL PROFESSIONAL Notes: (Same as: Dilaudid) Start Date: 04/24/17 Stop Date: 04/25/17 Status: Discontinued diphenhydrAMINE 12.5 mg, 0.5 tab, Route: PO, Drug form: TAB, Q6H, Dosing Weight 70.057, kg, PRN Itching, Start date: 04/24/17 9:31:00 FINANCIAL PROFESSIONAL, Duration: 30 day, Stop date: 05/24/17 9:30:00 FINANCIAL PROFESSIONAL Start Date: 04/24/17 Stop Date: 04/25/17 Status: Discontinued docusate 100 mg, 1 cap, Route: PO, Drug form: CAP, BID, Dosing Weight 70.057, kg, Start d ate: 04/24/17 17:00:00 FINANCIAL PROFESSIONAL, Duration: 30 day, Stop date: 05/24/17 9:00:00 FINANCIAL PROFESSIONAL Notes: (Same as: Colace) (Do Not Crush) Start Date: 04/24/17 Stop Date: 04/25/17 Status: Discontinued enoxaparin 40 mg, 0.4 mL, Route: SUB-Q, Drug form: INJ, Daily, Dosing Weight 70.057, kg, St art date: 04/25/17 8:55:00 FINANCIAL PROFESSIONAL, Duration: 30 day, Stop date: 05/24/17 8:55:00 CS T Notes: (Same as: Lovenox) Start Date: 04/25/17 Stop Date: 04/25/17 Status: Discontinued Fiorinal with Codeine 1 cap, PO, PRN Headache 1-3 Start Date: 04/06/17 Status: Ordered Fiorinal with Codeine 1 cap, Route: PO, Dosing Weight 70.057, kg, Q6H, PRN Headache 1-3, Start date: 1 06/24/16 12:48:00 FINANCIAL PROFESSIONAL, Duration: 30 day, Stop date: 05/24/17 12:47:00 FINANCIAL PROFESSIONAL Start Date: 04/24/17 Stop Date: 04/24/17 Status: Deleted hydromorphone (ANES) Route: INTRATHECAL, Drug form: INJ, ONCE, Stop date: 04/24/17 8:38:00 FINANCIAL PROFESSIONAL Start Date: 04/24/17 Stop Date: 04/24/17 Status: Completed ibuprofen 800 mg, Route: PO, Drug form: TAB, Q8H, Dosing Weight 70.057, kg, PRN Pain 4-6/T emp > 100.4 F, Start date: 04/24/17 12:48:00 FINANCIAL PROFESSIONAL, Duration: 30 day, Stop date: 05/24/17 12:47:00 FINANCIAL PROFESSIONAL Start Date: 04/24/17 Stop Date: 04/24/17 Status: Deleted ibuprofen 800 mg oral tablet 800 mg=1 tab, PO, PRN Pain 1-3/Temp > 100.4 F, as needed Start Date: 04/06/17 Stop Date: 04/25/17 Status: Discontinued ketOROLAC 15 mg, 1 mL, Route: IV, Drug form: INJ, Q8H, Dosing Weight 70.057, kg, Start esau e: 04/24/17 17:00:00 FINANCIAL PROFESSIONAL, Duration: 2 day, Stop date: 04/26/17 9:00:00 FINANCIAL PROFESSIONAL Notes: (Same as:Toradol) IV bolus must be given >15 seconds. Give IM administration slowly and deeply into the muscle. Not for use > 4 days. Start Date: 04/24/17 Stop Date: 04/25/17 Status: Discontinued ketOROLAC (ANES) IV, ONCE Start Date: 04/24/17 Stop Date: 04/24/17 Status: Completed Lactated Ringers Injection IV 1000 mL 1,000 mL, Rate: 25 ml/hr, Infuse over: 40 hr, Route: IV, Dosing Weight 70.057 kg , Total Volume: 1,000, Start date: 04/24/17 7:40:00 FINANCIAL PROFESSIONAL, Duration: 30 day, Stop date: 05/24/17 7:39:00 FINANCIAL PROFESSIONAL Start Date: 04/24/17 Stop Date: 04/24/17 Status: Discontinued lidocaine (ANES) Route: IV, Drug form: INJ, ONCE, Stop date: 04/24/17 8:33:00 FINANCIAL PROFESSIONAL Start Date: 04/24/17 Stop Date: 04/24/17 Status: Completed Lipitor 10 mg, 1 tab, Route: PO, Drug form: TAB, Bedtime, Start date: 04/24/17 21:00:00 FINANCIAL PROFESSIONAL, Duration: 30 day, Stop date: 05/23/17 21:00:00 FINANCIAL PROFESSIONAL Notes: (Same As: Lipitor) Start Date: 04/24/17 Stop Date: 04/25/17 Status: Discontinued lovastatin 20 mg, PO, Bedtime, 0 Refill(s) Start Date: 04/06/17 Status: Ordered lovastatin 20 mg, Route: PO, Bedtime, Dosing Weight 70.057, kg, Start date: 04/24/17 21:00: 00 FINANCIAL PROFESSIONAL, Duration: 30 day, Stop date: 05/23/17 21:00:00 FINANCIAL PROFESSIONAL Start Date: 04/24/17 Stop Date: 04/24/17 Status: Deleted Lovenox 40 mg/0.4 mL subcutaneous solution 40 mg, SUB-Q, Daily, X 9 day, # 9 ea, 0 Refill(s) Start Date: 04/25/17 Stop Date: 05/04/17 Status: Ordered LR 1000 mL INJ (ANES) Route: IV, Total Volume: 1,000, Start date: 04/24/17 7:43:00 FINANCIAL PROFESSIONAL, Stop date: 12/03 8:43:00 FINANCIAL PROFESSIONAL Start Date: 04/24/17 Stop Date: 04/24/17 Status: Completed MiraLax 17 gm, 1 pkt, Route: PO, Drug form: PWDR, ONCE, Dosing Weight 70.057, kg, Start date: 04/25/17 12:41:00 FINANCIAL PROFESSIONAL, Duration: 1 doses or times, Stop date: 04/25/17 12: 41:00 FINANCIAL PROFESSIONAL Notes: Dissolve in 8 oz of water or juice.(Same as: Miralax) Start Date: 04/25/17 Stop Date: 04/25/17 Status: Completed multivitamin 1 tab, Route: PO, Drug Form: TAB, Dosing Weight 70.057, kg, Daily, Start date: 1 06/25/16 9:00:00 FINANCIAL PROFESSIONAL, Duration: 30 day, Stop date: 05/24/17 9:00:00 FINANCIAL PROFESSIONAL Notes: (Same as:One Tab Daily, Tab-A-Shaka + Beta Carotene) Give with food. Start Date: 04/25/17 Stop Date: 04/25/17 Status: Discontinued [place] 10/325 oral tablet 1 tab, Route: PO, Drug Form: TAB, Dosing Weight 70.057, kg, Q3H, PRN Pain Score 4-6, Start date: 04/24/17 9:31:00 FINANCIAL PROFESSIONAL, Duration: 30 day, Stop date: 05/24/17 9:3 0:00 FINANCIAL PROFESSIONAL Notes: Do not exceed 4gm/day of acetaminophen. (Same as: [place] 325/10) Start Date: 04/24/17 Stop Date: 04/25/17 Status: Discontinued [place] 5/325 oral tablet 1 tab, Route: PO, Drug Form: TAB, Dosing Weight 70.057, kg, Q3H, PRN Pain Score 1-3, Start date: 04/24/17 9:31:00 FINANCIAL PROFESSIONAL, Duration: 30 day, Stop date: 05/24/17 9:3 0:00 FINANCIAL PROFESSIONAL Notes: (Same as: [place] 325/5) Do not exceed 4gm/day of acetaminophen. Start Date: 04/24/17 Stop Date: 04/25/17 Status: Discontinued ondansetron (ANES) Route: IV, Drug form: INJ, ONCE, Stop date: 04/24/17 9:54:00 FINANCIAL PROFESSIONAL Start Date: 04/24/17 Stop Date: 04/24/17 Status: Completed oxyCONTIN 10 mg, Route: PO, Drug form: ERTAB, ONCALL, Dosing Weight 70.057, kg, Start date : 04/24/17 7:00:00 FINANCIAL PROFESSIONAL, Duration: 30 day, Stop date: 05/24/17 6:59:00 FINANCIAL PROFESSIONAL Start Date: 04/24/17 Stop Date: 04/24/17 Status: Completed Percocet 10/325 oral tablet See Instructions, PRN Pain Score 7-10, 1-2 tab PO Q4-6H as needed, # 90 tab, 0 Refill(s), given to patient Start Date: 04/25/17 Status: Ordered Percocet 10/325 oral tablet 1 tab, Route: PO, Drug Form: TAB, Dosing Weight 70.057, kg, Q3H, PRN Pain Score 7-10, Start date: 04/24/17 9:31:00 FINANCIAL PROFESSIONAL, Duration: 30 day, Stop date: 05/24/17 9: 30:00 FINANCIAL PROFESSIONAL Start Date: 04/24/17 Stop Date: 04/24/17 Status: Deleted propofol (ANES) Route: IV, Drug form: INJ, ONCE, Stop date: 04/24/17 8:33:00 FINANCIAL PROFESSIONAL Start Date: 04/24/17 Stop Date: 04/24/17 Status: Completed ERICKSON Pericapsular INJ 100 mL, Route: InFILtration(local), Drug Form: INJ, Dosing Weight 70.057, kg, SECURITY MONITOR, Start date: 04/24/17 7:00:00 FINANCIAL PROFESSIONAL, Duration: 6 hr, Stop date: 04/24/17 17:0 7:00 FINANCIAL PROFESSIONAL Notes: NOT FOR IV useRopivacaine 5 mg/mL (49.25 mL) Epinephrine 1 mg/mL (0.5 mL) Clonidine 0.1 mg/mL (0.8 mL) Ketorolac 30 mg/mL (1 mL) Normal Saline 48 .45 mL Start Date: 04/24/17 Stop Date: 04/25/17 Status: Discontinued Roxicodone 10 mg, 2 tab, Route: PO, Drug form: TAB, Q3H, PRN Pain Score 7-10, Start date: 1 06/24/16 11:08:00 FINANCIAL PROFESSIONAL, Duration: 30 day, Stop date: 05/24/17 11:07:00 FINANCIAL PROFESSIONAL Notes: (Same as: Roxicodone) Start Date: 04/24/17 Stop Date: 04/25/17 Status: Discontinued Saline Flush 0.9% 10 ml, Route: IVP, Drug Form: INJ, Dosing Weight 70.057, kg, PRN, PRN Line Flush , Start date: 04/25/17 9:31:00 FINANCIAL PROFESSIONAL, Duration: 30 day, Stop date: 05/25/17 9:30:0 0 FINANCIAL PROFESSIONAL Notes: (Same as: BD Posiflush) Start Date: 04/25/17 Stop Date: 04/25/17 Status: Discontinued Saline Flush 0.9% 10 ml, Route: IVP, Drug Form: INJ, Dosing Weight 70.057, kg, Q12H, Start date: 06/25/16 21:00:00 FINANCIAL PROFESSIONAL, Duration: 30 day, Stop date: 05/25/17 9:00:00 FINANCIAL PROFESSIONAL Notes: (Same as: BD Posiflush) Start Date: 04/25/17 Stop Date: 04/25/17 Status: Canceled sodium chloride 0.45% 1000 ml INJ 1,000 mL 1,000 mL, Rate: 75 ml/hr, Infuse over: 13.3 hr, Route: IV, Dosing Weight 70.057 kg, Total Volume: 1,000, Start date: 04/24/17 9:31:00 FINANCIAL PROFESSIONAL, Duration: 30 day, Sto p date: 05/24/17 9:30:00 FINANCIAL PROFESSIONAL Start Date: 04/24/17 Stop Date: 04/25/17 Status: Discontinued tranexamic acid 1,000 mg, Route: IV, ONCE, Dosing Weight 70.057, kg, Start date: 04/24/17 9:31:0 0 FINANCIAL PROFESSIONAL, Stop date: 04/24/17 9:31:00 FINANCIAL PROFESSIONAL Start Date: 04/24/17 Stop Date: 04/24/17 Status: Deleted tranexamic acid (ANES) (ANES) Route: IV, Drug form: INJ, Start date: 04/24/17 9:25:00 FINANCIAL PROFESSIONAL, Stop date: 04/24/17 10:25:00 FINANCIAL PROFESSIONAL Start Date: 04/24/17 Stop Date: 04/24/17 Status: Completed tranexamic acid + sodium chloride 0.9% INJ 100 mL 1,000 mg, 10 mL, Route: IV, ONCALL, Dosing Weight 70.057, kg, Start date: 7:00:00 FINANCIAL PROFESSIONAL, Duration: 6 hr, Stop date: 04/24/17 17:08:00 FINANCIAL PROFESSIONAL Notes: (Same As: Cyklokapron) Start Date: 04/24/17 Stop Date: 04/25/17 Status: Discontinued Tylenol 325 mg, 1 tab, Route: PO, Drug form: TAB, Q3H, PRN Pain Score 7-10, Start date: 04/24/17 11:07:00 FINANCIAL PROFESSIONAL, Duration: 30 day, Stop date: 05/24/17 11:06:00 FINANCIAL PROFESSIONAL Notes: Do not exceed 4 gm/day. (Same as: Tylenol) Start Date: 04/24/17 Stop Date: 04/25/17 Status: Discontinued Tylenol 1,000 mg, Route: PO, ONCALL, Dosing Weight 70.057, kg, Start date: 04/24/17 7:00 :00 FINANCIAL PROFESSIONAL, Duration: 30 day, Stop date: 05/24/17 6:59:00 FINANCIAL PROFESSIONAL Start Date: 04/24/17 Stop Date: 04/24/17 Status: Completed vancomycin (ANES) (ANES) Route: IV, Drug form: INJ, Start date: 04/24/17 7:43:00 FINANCIAL PROFESSIONAL, Stop date: 04/24/17 8:43:00 FINANCIAL PROFESSIONAL Start Date: 04/24/17 Stop Date: 04/24/17 Status: Completed vancomycin (SCIP) + sodium chloride 0.9% INJ 250 mL 1,000 mg, Route: IVPB, [id number], Dosing Weight 70.057, kg, Time Critical Medicati on, Start date: 04/24/17 19:00:00 FINANCIAL PROFESSIONAL, Duration: 2 doses or times, Stop date: 7:00:00 FINANCIAL PROFESSIONAL, Pharmacy to adjust dose for renal function, ABX Indication: Surgical Pr... Notes: TIME CRITICAL MEDICATION(Same As: Vancocin)Infusion rate< 1000 mg: infuse over 1 [id number] - 1500 mg: infuse over 1.5 [id number] - 2000 mg: infuse over 2 hours> 2001 mg: infuse over 2.5 hours MEDICATION WASTE Product Size: 1000 mgProduct Wasted: ___ mg Start Date: 04/24/17 Stop Date: 04/25/17 Status: Completed vancomycin + sodium chloride 0.9% INJ 250 mL 1,050.855 mg, Route: IVPB, ONCALL, Dosing Weight 70.057, kg, Start date: 7 7:00:00 FINANCIAL PROFESSIONAL, Duration: 6 hr, Stop date: 04/24/17 12:59:00 FINANCIAL PROFESSIONAL, ABX Indication: Surgical Prophylaxis Notes: TIME CRITICAL MEDICATION(Same As: Vancocin)Infusion rate< 1000 mg: infuse over 1 [id number] - 1500 mg: infuse over 1.5 [id number] - 2000 mg: infuse over 2 hours> 2001 mg: infuse over 2.5 hours MEDICATION WASTE Product Size: 1000 mgProduct Wasted: ___ mg Start Date: 04/24/17 Stop Date: 04/25/17 Status: Discontinued Vitamin D3 400 IntlUnit, 1 tab, Route: PO, Drug form: TAB, Daily, Dosing Weight 70.057, kg, Start date: 04/25/17 9:00:00 FINANCIAL PROFESSIONAL, Duration: 30 day, Stop date: 05/24/17 9:00:00 FINANCIAL PROFESSIONAL Notes: Same as Vitamin D3 Start Date: 04/25/17 Stop Date: 04/25/17 Status: Discontinued Vitamin D3 oral tablet 400 IntlUnit=1 tab, PO, Daily Start Date: 04/06/17 Status: Ordered Zofran 4 mg, Route: IV, Q6H, Dosing Weight 70.057, kg, PRN Nausea, Start date: 04/24/17 9:31:00 [employer]ESSION[employer], Duration: 30 day, Stop date: 05/24/17 9:30:00 [employer] PROFESSIONAL Start Date: 04/24/17 Stop Date: 04/24/17 Status: Deleted Zofran 4 mg, 2 mL, Route: IV, Drug form: INJ, Q8H, Dosing Weight 70.057, kg, Start date : 04/24/17 16:00:00 [employer] PROFESSIONAL, Duration: 3 doses or times, Stop date: 04/25/17 8:00:00 [employer] PROFESSIONAL Notes: (Same as: Zofran) MEDICATION WASTE Product Size: 4 mgProduct Was consuelo: ___ mg Start Date: 04/24/17 Stop Date: 04/25/17 Status: Completed Zofran 4 mg, 2 mL, Route: IVP, Drug form: INJ, Q6H, PRN Nausea & Vomiting, Start date: 04/25/17 14:00:00 [employer] PROFESSIONAL, Duration: 30 day, Stop date: 05/25/17 13:59:00 [employer]CIAL PROFESSIONAL Notes: (Same as: Katalina) MEDICATION WASTE Product Size: 4 mgProduct Was consuelo: ___ mg Start Date: 04/25/17 Stop Date: 04/25/17 Status: Discontinued Results BLOOD BANK RESULTS Most recent to 1 2 oldest [Reference Range]: ABO/Rh B POS B POS *Unknown* *Unknown* (04/24/17 6:23 AM) (04/06/17 8:56 AM) Antibody Scrn Negative Negative (04/24/17 6:23 AM) (04/06/17 8:56 AM) ELECTROLYTES Most recent to 1 2 oldest [Reference Range]: Sodium Lvl [135-145 140 mEq/L 140 mEq/L mEq/L] (04/25/17 4:58 AM) (04/06/17 8:56 AM) Potassium Lvl 4.3 mEq/L 3.6 mEq/L [3.5-5.1 mEq/L] (04/25/17 4:58 AM) (04/06/17 8:56 AM) Chloride Lvl [95-109 103 mEq/L 102 mEq/L mEq/L] (04/25/17 4:58 AM) (04/06/17 8:56 AM) CO2 [24-32 mEq/L] 29 mEq/L 33 mEq/L (04/25/17 4:58 AM) *HI* (04/06/17 8:56 AM) AGAP [10.0-20.0 12.3 mEq/L 8.6 mEq/L mEq/L] (04/25/17 4:58 AM) *LOW* (04/06/17 8:56 AM) CHEM PANEL Most recent to 1 2 oldest [Reference Range]: Creatinine Lvl 0.62 mg/dL 0.55 mg/dL [0.50-1.40 mg/dL] (04/25/17 4:58 AM) (04/06/17 8:56 AM) eGFR 93 mL/min/1.73m2 1 97 mL/min/1.73m2 2 *NA* *NA* (04/25/17 4:58 AM) (04/06/17 8:56 AM) BUN [7-22 mg/dL] 13 mg/dL 8 mg/dL (04/25/17 4:58 AM) (04/06/17 8:56 AM) Glucose Lvl [70-99 141 mg/dL 87 mg/dL mg/dL] *HI* (04/06/17 8:56 AM) (04/25/17 4:58 AM) Calcium Lvl 8.8 mg/dL 9.5 mg/dL [8.5-10.5 mg/dL] (04/25/17 4:58 AM) (04/06/17 8:56 AM) 1Result Comment: The eGFR is calculated [...] be mul tiplied by the estimated BMI. 2Result Comment: The eGFR is calculated using the [...] URINE AND STOOL Most recent to 1 2 oldest [Reference Range]: UA Turbidity [Clear] Clear (04/06/17 8:56 AM) UA Color Ltyellow *NA* (04/06/17 8:56 AM) UA pH [5.0-8.0] 5.0 (04/06/17 8:56 AM) UA Spec Grav 1.004 [<=1.030] (04/06/17 8:56 AM) UA Glucose [Negative Negative mg/dL mg/dL] *NA* (04/06/17 8:56 AM) UA Blood [Negative] Negative (04/06/17 8:56 AM) UA Ketones [Negative Negative mg/dL mg/dL] *NA* (04/06/17 8:56 AM) UA Protein [Negative Negative mg/dL mg/dL] (04/06/17 8:56 AM) UA Urobilinogen <=1.0 mg/dL [0.1-1.0 mg/dL] *NA* (04/06/17 8:56 AM) UA Bili [Negative] Negative *NA* (04/06/17 8:56 AM) UA Leuk Est Negative [Negative] (04/06/17 8:56 AM) UA Nitrite Negative [Negative] (04/06/17 8:56 AM) UA WBC [0-5 /HPF] 1 /HPF (04/06/17 8:56 AM) UA RBC [0-2 /HPF] 3 /HPF *HI* (04/06/17 8:56 AM) UA Sq Epi None Seen *NA* (04/06/17 8:56 AM) HEMATOLOGY Most recent to 1 2 oldest [Reference Range]: WBC [3.7-10.4 K/CMM] 15.4 K/CMM 8.3 K/CMM *HI* (04/06/17 8:56 AM) (04/25/17 4:58 AM) RBC [4.20-5.40 3.69 M/CMM 4.65 M/CMM M/CMM] *LOW* (04/06/17 8:56 AM) (04/25/17 4:58 AM) Hgb [12.0-16.0 g/dL] 11.8 g/dL 14.9 g/dL *LOW* (04/06/17 8:56 AM) (04/25/17 4:58 AM) Hct [36.0-48.0 %] 34.9 % 43.3 % *LOW* (04/06/17 8:56 AM) (04/25/17 4:58 AM) MCV [80.0-98.0 fL] 94.5 fL 93.1 fL (04/25/17 4:58 AM) (04/06/17 8:56 AM) MCH [27.0-31.0 pg] 32.1 pg 32.0 pg *HI* *HI* (04/25/17 4:58 AM) (04/06/17 8:56 AM) MCHC [32.0-36.0 34.0 g/dL 34.3 g/dL g/dL] (04/25/17 4:58 AM) (04/06/17 8:56 AM) RDW [11.5-14.5 %] 12.8 % 12.5 % (04/25/17 4:58 AM) (04/06/17 8:56 AM) Platelet [133-450 193 K/CMM 277 K/CMM K/CMM] (04/25/17 4:58 AM) (04/06/17 8:56 AM) MPV [7.4-10.4 fL] 9.0 fL 8.4 fL (04/25/17 4:58 AM) (04/06/17 8:56 AM) Segs [45.0-75.0 %] 87.7 % 67.3 % *HI* (04/06/17 8:56 AM) (04/25/17 4:58 AM) Lymphocytes 5.8 % 23.1 % [20.0-40.0 %] *LOW* (04/06/17 8:56 AM) (04/25/17 4:58 AM) Monocytes [2.0-12.0 6.4 % 7.0 % %] (04/25/17 4:58 AM) (04/06/17 8:56 AM) Eosinophils [0.0-4.0 2.0 % %] (04/06/17 8:56 AM) Basophils [0.0-1.0 0.1 % 0.6 % %] (04/25/17 4:58 AM) (04/06/17 8:56 AM) Segs-Bands # 13.5 K/CMM 5.6 K/CMM [1.5-8.1 K/CMM] *HI* (04/06/17 8:56 AM) (04/25/17 4:58 AM) Lymphocytes # 0.9 K/CMM 1.9 K/CMM [1.0-5.5 K/CMM] *LOW* (04/06/17 8:56 AM) (04/25/17 4:58 AM) Monocytes # [0.0-0.8 1.0 K/CMM 0.6 K/CMM K/CMM] *HI* (04/06/17 8:56 AM) (04/25/17 4:58 AM) Eosinophils # 0.2 K/CMM [0.0-0.5 K/CMM] (04/06/17 8:56 AM) Basophils # [0.0-0.2 0.1 K/CMM K/CMM] (04/06/17 8:56 AM) PT [12.0-14.7 12.5 seconds seconds] (04/06/17 8:56 AM) INR [0.85-1.17] 0.93 (04/06/17 8:56 AM) PTT [22.9-35.8 26.8 seconds seconds] (04/06/17 8:56 AM) BACTERIAL - SEROLOGY Most recent to 1 2 oldest [Reference Range]: MRSA by PCR Negative (04/06/17 8:56 AM) Immunizations No data available for this [...] Smoking Cessation Counseling No Assessment and Plan Extracted from: Title: Clinical Document Author: Magdi Torres MD Date: [...] pain Redness along incision purulent drainage Extracted from: Title: Clinical Document Author: Magdi Torres MD Date: 04/24/17 TKA Operative Note Date: 04/24/2017 Location: [facility] Attending: Magdi Torres MD Pre-op dx: left knee osteoarthritis Post-op dx: left knee osteoarthritis Procedure: left total knee arthroplasty Anesthesiologist: Dr. Royce Garg Anesthesia: General, Dilaudid SPinal Editor Newspaper: Gonzalez Rodriguez T-time: 90 min EBL: minimal UOP: no tirado IVF: see anesthesia note Transfusion: none required Implants: [employer]iano [employer]hew Femur: 4N, oxinium, CR, Legion Tibia: 3, Deonna 2 Polyethylene: 9, dished, xlink Patella: 29 mm Cement: Tanner Simplex Abx Cement, 2 packs Resections: Femur: [...] The wound was dressed with dermabond, adaptic, 4x4 s, abd pads, and an mary wrap. Tourniquet was released after the dressing was placed and tranexemic acid was given during the closure. The entire procedure was completed with the attending surgeon. Laminar air flow body exhaust suits were worn for the entire procedure. A elementary assistant teacher was utilized for the entire procedure. The elementary assistant teacher aided in positioning, retraction, implant sizing/implementation, and closure. The elementary assistant teacher decreased surgical time and therefore mauri-operative morbidity. Post-op Dispo: Patient will be admitted to the floor, receive 24 hours of intravenous antibiotics, and DVT prophylaxis. The patient can weight bear as tolerated with no range of motion requirements. Extracted from: Title: Clinical Document Author: Magdi Torres MD Date: [...] joint line tenderness to palpation. X-rays demonstrates [id number] articulation in the medial compartment, periarticular osteophytes, [...]
--- OUTSIDE RECORDS SUMMARY | 2019-01-17 06:37 | XMS REPORT | Summary of Care ---
Author Organization Unknown Address Unknown Phone Unavailable Encounter HQ Rosalinda_bartolome(FIN) [phone] Date(s): 03/12/14 - 03/12/14 [facility] Outpatient Imaging - [address] [address]- [place] Discharge Disposition: Home Physician Attending: Suleiman Hassan MD Reason for Visit 592.0 - CALCULUS OF KID Problem List Condition Effective Dates Status Health Status Informant Acid Active reflux(Confirmed) HTN - Active Hypertension(Confirm ed) Kidney Active stone(Confirmed) Sleep Active apnea(Confirmed) Allergies, Adverse Reactions, Alerts Substance Reaction Severity Status NKDA Active Medications No data available for this section Medications Administered During Your Visit No data available for this section Immunizations No data available for this section Social History Social History Type Response Smoking Status Former smoker, Exposure to Tobacco Smoke None, Cigarette Smoking Last 365 Days No, Reg Smoking Cessation Counseling No
--- OUTSIDE RECORDS SUMMARY | 2019-01-17 06:37 | XMS REPORT | Summary of Care ---
Author Author [facility] Outpatient Imaging - [place] Organization [facility] [place] Address Unknown Phone Unavailable Encounter HQ Benoit(FIN) [phone] Date(s): 11/24/17 - 11/24/17 [facility] Outpatient Imaging - [place] [address] [place] [phone] Discharge Disposition: Home or Self Care Attending Physician: Branden Maldonado MD Vital Signs No data available for [...]
--- OUTSIDE RECORDS SUMMARY | 2019-01-17 06:38 | XMS REPORT | Summary of Care ---
Author Author NIKKO ROBERTSON M.D. Organization Unknown Address [facility] Phone Unavailable Care Team Providers Care Database Engineer Name Role Phone NIKKO ROBERTSON M.D. 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 Active Multi Vitamin/Minerals TABS * Refills: 0 R.N. Active Calcium TABS * Refills: 0 R.N. Active Aspirin 81 MG TABS * Refills: 0 R.N. Active Diclofenac Sodium 1 % Transdermal Gel APPLY TO LOWER EXTREMITIES, 4 GM OF GEL TO AFFECTED AREA 4 TIMES DAILY. DO NOT APPLY MORE THAN 16 GM DAILY TO ANY ONE AFFECTED JOINT. * Quantity: 5 Refills: 3 NIKKO ROBERTSON M.D. * Start : 03-Feb-2017 Active 100 GM Tube Allergies and Adverse Reactions Name Dates Details No Known Drug Allergies (Allergy) Status: Active Procedures Procedure Dates Details History of Hernia Repair Completed History of Hysterectomy Completed Immunization Name Dates Details Immunizations not documented Family History Name Dates Details Family history of Diabetes Mellitus (V18.0) Status: Active Family history of Arthritis (V17.7) Status: Active Name Dates Details Family history of Diabetes Mellitus (V18.0) Status: Active Name Dates Details Family history of Diabetes Mellitus (V18.0) Status: Active Social History Name Dates Details - Status: Name Dates Details Former smoker Vital Signs Date Test Result Details No Known Vitals to report Results Date Description Value Details Results not documented Plan of Care Name Dates Details Planned Observations Planned Goals not documented Interventions Provided Medication Changes* Diclofenac Sodium 1 % Transdermal Gel - Start Instructions Name Dates Details Instructions not documented Encounters Appointment; NIKKO ROBERTSON M.D. Encounter Diagnosis: Problem not documented On: 03-Feb-2017 8:45 Appointment; NIKKO ROBERTSON M.D. Encounter Diagnosis: Problem not documented On: 29-Mar-2017 14:15 Appointment; NIKKO ROBERTSON M.D. Encounter Diagnosis: Problem not documented On: 20-Apr-2017 10:30 Appointment; NIKKO ROBERTSON M.D. Encounter Diagnosis: Problem not documented On: 24-Apr-2017 8:00 Appointment; NIKKO ROBERTSON M.D. Encounter Diagnosis: Problem not documented On: 03-May-2017 15:45 Appointment; NIKKO ROBERTSON M.D. Encounter Diagnosis: Problem not documented On: 17-May-2017 13:00 Appointment; NIKKO ROBERTSON M.D. Encounter Diagnosis: Problem not documented On: 31-May-2017 13:45 Appointment; NIKKO ROBERTSON M.D. Encounter Diagnosis: Problem not documented On: 15-Jun-2017 9:45 Appointment; NIKKO ROBERTSON M.D. Encounter Diagnosis: Problem not documented On: 27-Jul-2017 11:30 Appointment; NIKKO ROBERTSON M.D. Encounter Diagnosis: Problem not documented On: 26-Oct-2017 11:30
--- OUTSIDE RECORDS SUMMARY | 2019-01-17 06:38 | XMS REPORT | Summary of Care ---
Author Author [facility] Outpatient [facility] - [place] Organization [facility] [place] Address Unknown Phone Unavailable Encounter HQ Rosalinda_bartolome(FIN) [phone] Date(s): 04/09/15 - 04/09/15 [facility] Outpatient Imaging - [place] [address] [place], [place] [address] [phone] Discharge Disposition: Home Attending Physician: Suleiman Hassan MD Vital Signs [...] Procedures Procedure Date Related Diagnosis Body Site Eddi-Thelma operation for hiatal hernia repair with esophagogastroplasty Partial hysterectomy Social History Social History Type Response Smoking Status Former smoker; Exposure to Tobacco Smoke None; Cigarette Smoking Last 365 Days No; Reg Smoking Cessation Counseling No Assessment and Plan No data available for this section
--- OUTSIDE RECORDS SUMMARY | 2019-01-17 06:38 | XMS REPORT | Summary of Care ---
Author Author [facility] Outpatient Imaging - [place] Organization [facility] [place] Address Unknown Phone Unavailable Encounter HQ Rosalinda_bartolome(FIN) [phone] Date(s): 04/11/16 - 04/11/16 [facility] Out[facility] Imaging - [place] [address] [place] [phone] Discharge Disposition: Home or Self Care Attending [...]
--- OUTSIDE RECORDS SUMMARY | 2019-01-17 06:38 | XMS REPORT ---
Author Author [facility] Address Unknown Phone Unavailable Care Team Providers Care Claims Auditor Name Role Phone MILI GRAY Unavailable Unavailable Problems This patient has no known problems. Allergies, Adverse Reactions, Alerts This patient has no known allergies or adverse reactions. Medications This patient has no known medications. Results Test Description Test Time Test Comments Text Results Atomic Results Result Comments CHEST 2 VIEWS 2019-01-15 15:17:00 [place] [id number] Patient Name: JAYDA REILLY I MR #: [id number] : 1950 Age/Sex: 68/F Req #: [id number] Adm Physician: Ordered by: MILI GRAY MD Report #: [id number] Location: OR Room/Bed: Procedure: [id number] DX/CHEST 2 VIEWS Exam Date: 01/15/19 Exam Time: 1421 REPORT STATUS: Signed EXAMINATION: CHEST 2 VIEWS INDICATION: Pre-operative COMPARISON: Chest radiograph of 03/10/2009 FINDINGS: LINES/TUBES:None LUNGS:The lungs are well-inflated. No focal consolidation or pulmonary edema. PLEURA:No pleural effusion or pneumothorax. MEDIASTINUM:The cardiomediastinal silhouette appears normal in size and shape. BONES/SOFT TISSUES:No acute osseous injury. Mild degenerative changes of the visualized spine. Cervical fusion hardware partially visualized. ABDOMEN:No free air under the diaphragm. IMPRESSION: No focal pneumonia or pulmonary edema. Signed by: Yumiko Payne MD on 01/15/2019 3:18 PM Dictated By: YUMIKO PAYNE MD [id number] Transcribed By: MARVEL on 01/15/19 1517 COPY TO: MILI GRAY MD
--- OUTSIDE RECORDS SUMMARY | 2019-01-17 06:38 | XMS REPORT | Summary of Care ---
Author Organization Unknown Address Unknown Phone Unavailable Encounter HQ Jlr_bartolome(FIN) [id number] Date(s): 08/14/14 - 08/14/14 [facility] Outpatient Imaging - [address] [address] [phone] Discharge Disposition: Home Physician Attending: Branden Maldonado MD Vital Signs No data [...] No data available for this section Procedures No data available for this section Social History Social History Type Response Smoking Status Former smoker; Exposure to Tobacco Smoke None; Cigarette Smoking Last 365 Days No; Reg Smoking Cessation Counseling No Assessment and Plan No data available for this section
--- OUTSIDE RECORDS SUMMARY | 2019-01-17 06:38 | XMS REPORT | Summary of Care ---
Author Author [facility] [place] Organization [facility] [place] Address Unknown Phone Unavailable Encounter HQ Rosalinda_bartolome(FIN) [id number] Date(s): 03/09/15 - 03/09/15 [facility] Out[facility] Imaging - [place] [address] [place], [place] [id number] [place] [address] [phone] Discharge Disposition: Home Attending Physician: Branden Maldonado MD Vital Signs [...]
--- OUTSIDE RECORDS SUMMARY | 2019-01-17 06:38 | XMS REPORT | Summary of Care ---
Author Author [facility] Outpatient Imaging - [place] Organization [facility] [place] Address Unknown Phone Unavailable Encounter HQ Rosalinda_bartolome(FIN) [id number] Date(s): 06/17/16 - 06/17/[address] [facility] Outpatient Imaging - [place] [address] [place] [address] [phone] Discharge Disposition: Home or Self Care Attending [...]
[2019-01-17 10:50] VITALS: BP 120/91
--- NOTE | 2019-01-17 14:34 | Operative Report ---
DATE OF PROCEDURE: 01/17/2019 SURGEON: Aden Griggs MD PREOPERATIVE DIAGNOSIS: Right carpal tunnel syndrome. POSTOPERATIVE DIAGNOSIS: Right carpal tunnel syndrome. PROCEDURE: Right carpal tunnel release. ANESTHESIA: General. INDICATIONS: The patient is a 68-year-old woman, who presented with right carpal tunnel syndrome and was taken to the operating room for right carpal tunnel release. PROCEDURE IN DETAIL: After induction of general anesthesia, the patient was placed on the operating table in supine position with the right arm abducted over a hand table. The right hand, wrist, and forearm were prepped and draped circumferentially in sterile fashion. A small midline incision was created over the median palmar crease of the hand just distal to the distal flexor crease of the wrist. The subcutaneous fat was divided. Transverse carpal ligament was divided proximally and distally until the median nerve was fully exposed and decompressed within the carpal tunnel. The point of maximum compression of nerve appeared to be about 2 cm distal to the distal flexor crease of the wrist, but the ligament was at its thickest. More distally, the recurrent motor branch of the nerve was preserved within its fat pad. The wound was copiously irrigated with bacitracin solution. Meticulous hemostasis was secured. Retractor was removed. The subcutaneous layer was closed with a 3-0 Vicryl suture. The skin was closed with a 3-0 nylon suture in a horizontal mattress fashion. A dressing was applied. The patient was awakened, extubated, and taken to postanesthesia care unit in stable condition. No intraoperative complications were encountered. Estimated blood loss was minimal. Aden Griggs MD PP/ISACL /[id number]
== END | disposition home or self-care (01) ==
LOC: OR 06:31
PROVIDERS: ATTEND Neurological Surgery
DX: G56.01 Carpal tunnel syndrome, right upper limb (principal); M19.90 Unspecified osteoarthritis, unspecified site; G47.33 Obstructive sleep apnea (adult) (pediatric); E78.5 Hyperlipidemia, unspecified; Z01.810 Encounter for preprocedural cardiovascular examination; Z01.812 Encounter for preprocedural laboratory examination; Z01.818 Encounter for other preprocedural examination
CPT/HCPCS: 36415; 64721; 71046; 85025; 85610; 85730; 93005; J0690; J1100; J1885; J2001; J2405; J2704; J3010

== ENCOUNTER → 2019-08-29 | Outpatient (CLI) | payer MEDICARE ==
[~2019-08-29] MED LIST changes: -BUPIVACAINE HCL 0.5% INJ 30 ML VIAL INJ ONE; +CARAFATE1 GM/10 ML PO; -CEFAZOLIN SOD 1 GM/NS 50ML 100 ML IV ONE; -DEXAMETHASONE SOD PHOS INJ 4 MG/ML VIAL ONE; -FENTANYL CITRATE/PF 100MCG/2 ML INJ ONE; -KETOROLAC TROMETHAMINE 30 MG/ML VIAL ONE; -LIDOCAINE HCL 2% LOCAL INJ 5 ML SDV VIAL INJ ONE; -ONDANSETRON HCL INJ 2MG/ML 2ML 2 MG/ML VIAL ONE; -PROPOFOL IV EMULSION 10 MG/ML 20 ML VIAL ONE; -SEVOFLURANE INHAL SOLN 250 ML PEN BTL ONE
[2019-08-29 09:17] LABS: BASOPHILS # (AUTO) 0.1 (0.0-0.1); BASOPHILS % 1.1 % (0.0-1.0); EOSINOPHILS # (AUTO) 0.2 (0.0-0.4); EOSINOPHILS % 3.2 % (0.0-6.0); HEMATOCRIT 39.3 % (34.2-44.1); HEMOGLOBIN 13.7 g/dL (12.0-16.0); LYMPHOCYTES # (AUTO) 1.6 (1.0-3.2); LYMPHOCYTES % 33.8 % (18.0-39.1); MEAN CORPUSCULAR HEMOGLOBIN 31.9 pg (28-32); MEAN CORPUSCULAR HGB CONC 34.9 g/dL (31-35); MEAN CORPUSCULAR VOLUME 91.6 fL (81-99); MONOCYTES # (AUTO) 0.5 (0.2-0.8); MONOCYTES % 9.9 % (4.4-11.3); NEUTROPHILS # (AUTO) 2.4 (2.1-6.9); NEUTROPHILS % 51.4 % (38.7-80.0); PLATELET COUNT 239 x10e3/uL (140-360); RED BLOOD COUNT 4.29 x10e6/uL (3.6-5.1); RED CELL DISTRIBUTION WIDTH 12.4 % (11.7-14.4)
--- NOTE | 2019-08-29 09:50 | Diagnostic Imaging Report ---
EXAMINATION: CHEST 2 VIEWS INDICATION: ^PREOP ^[id number] ^[id number] COMPARISON: 01/15/2019 FINDINGS: PA and lateral views TUBES and LINES: None. LUNGS: Lungs are well inflated. Lungs are clear. There is no evidence of pneumonia or pulmonary edema. PLEURA: No pleural effusion or pneumothorax. HEART AND MEDIASTINUM: Stable heart size. BONES AND SOFT TISSUES: No acute osseous lesion. Soft tissues are unremarkable. UPPER ABDOMEN: No free air under the diaphragm. IMPRESSION: No acute thoracic radiographic abnormality. Signed by: Jorge Colin MD on 08/29/2019 9:47 AM
== END ==
LOC: RAD 05:00 → EDSTATUS 09-10 07:00
PROVIDERS: ATTEND Plastic Surgery
DX: Z01.818 Encounter for other preprocedural examination (principal); G56.01 Carpal tunnel syndrome, right upper limb; Z53.8 Procedure and treatment not carried out for other reasons
CPT/HCPCS: 36415; 71046; 85025; 93005

== ENCOUNTER → 2019-12-12 | Outpatient (CLI) | payer MEDICARE ==
--- NOTE | 2019-12-12 11:22 | Diagnostic Imaging Report ---
EXAMINATION: SHOULDER LEFT COMPLETE INDICATION: Shoulder pain COMPARISON: None FINDINGS: Internal and external rotation images of the left shoulder demonstrate no acute fracture or dislocation. Alignment is anatomic. No substantial degenerative change. Soft tissues appear unremarkable. Partially visualized left lung is clear. Partially visualized cervical spine fusion hardware. IMPRESSION: No acute osseous injury of the left shoulder. Signed by: Yvonne Payne MD on 12/12/2019 11:19 AM
== END ==
LOC: RAD 10:48
PROVIDERS: ATTEND Family Medicine
DX: S46.012A Strain of muscle(s) and tendon(s) of the rotator cuff of left shoulder, initial encounter (principal)